=== PATIENT | female | born 1995 | race African-American/Black ===

== ENCOUNTER 2018-09-07 10:54 | Emergency (ER) | payer MEDICAID ==
[~2018-09-07] VITALS: Ht 172.7 cm; Wt 81.6 kg
[2018-09-07 11:12] VITALS: BP 112/73
[2018-09-07] MEDS ORDERED: Dicyclomine HCl 10mg/5ml oral soln ORAL ONE (11:30)
[2018-09-07] MEDS ORDERED: Mylanta II UD 30ml ORAL ONE (11:30)
[2018-09-07] MEDS ORDERED: Lidocaine 2% Visc 15ml soln ORAL ONE (11:30)
--- NOTE | 2018-09-08 14:18 | Emergency Room Report ---
History of Present Illness General Chief Complaint: Abdominal Pain Source: Patient Present Illness HPI Patient is a 23-year-old female presented after increased left-sided abdominal pain. Patient reports having the intermittent symptoms associated with nausea and vomiting. Patient reports having watery diarrhea. She reports having similar symptoms in the past. Patient states she had prior history of ovarian cyst. She denies any fever. She states she's had prior laparoscopy. The patient denies any hematemesis or bloody stools. She denies any weakness. Patient states that she's had recent imaging for similar complaints in the past.The patient states she is followed by her doctor at [facility] Allergies: Coded Allergies: No Known Allergies (Unverified , 09/07/18) Patient History Past Medical History: see triage record Last Menstrual Period: 08/19/18 Reviewed Nursing Documentation: PMH: Agreed; PSxH: Agreed Nursing Documentation-PMH Past Medical History: No Stated History Review of Systems All Other Systems: negative except mentioned in HPI Physical Exam Vital Signs Date Time Temp Pulse Resp B/P (MAP) Pulse Ox O2 Delivery O2 Flow Rate FiO2 09/07/18 10:57 98.2 63 18 112/73 99 Room Air Sp02 EP Interpretation: reviewed, normal General Appearance: normal inspection, well appearing, no apparent distress, alert, GCS 15 Head: atraumatic ENT: normal ENT inspection, hearing grossly normal, normal voice Neck: normal inspection, full range of motion, supple, no bony tend Respiratory: normal inspection, lungs clear, normal breath sounds, no respiratory distress, no retraction, no wheezing Cardiovascular #1: regular rate, rhythm, no edema Gastrointestinal: normal inspection, normal bowel sounds, soft, no guarding, no hernia, tenderness - left lower quadrant tendernes Genitourinary: no CVA tenderness Musculoskeletal: normal inspection, back normal, normal range of motion Neurologic: normal inspection, alert, oriented x3, responsive, clinical unit educator III-XII nml as tested, motor strength/tone normal, DTRs symmetric, speech normal Psychiatric: normal inspection, judgement/insight normal, mood/affect normal Skin: normal inspection, normal color, no rash Medical Decision Making Diagnostic Impression: Primary Impression: Abdominal pain Additional Impression: Ovarian cyst ER Course Patient presented for abdominal pain. Differential diagnoses included ischemic bowel, appendicitis, perforated viscus, abdominal aortic aneurysm, inferior myocardial infarction, viral gastroenteritis, ectopic , ovarian torsion. Because of complexity of patient's case laboratory testing and imaging studies were ordered.The patient was noted to have some tenderness in the left lower abdomen. The laboratory imaging studies were ordered however patient stated that she did not want to remain in the emergency department for workup. Patient was advised risk benefits and alternatives of leaving AGAINST MEDICAL ADVICE which included worsening condition, loss of current lifestyle. Patient left without any workup Last Vital Signs Date Time Temp Pulse Resp B/P (MAP) Pulse Ox O2 Delivery O2 Flow Rate FiO2 09/07/18 11:46 128/72 09/07/18 11:12 98.2 18 99 Room Air 09/07/18 11:05 63 Status: unchanged Disposition: AGAINST MEDICAL ADVICE Condition: Unknown Scripts No Active Prescriptions or Reported Meds Referrals: NON PHYSICIAN (PCP) Herber Thurman MD Sep 08, 2018 14:18
== END 2018-09-07 11:35 | disposition left against medical advice (07) ==
LOC: EMR 11:25
DX: R10.9 Unspecified abdominal pain (principal); R11.2 Nausea with vomiting, unspecified; N83.209 Unspecified ovarian cyst, unspecified side
CPT/HCPCS: 99282

== ENCOUNTER 2020-08-03 12:11 | Inpatient (IN) | payer MEDICAID, OTHER ==
[~2020-08-03] VITALS: Ht 172.7 cm; Wt 94.3 kg
[2020-08-03] MEDS ORDERED: NORCO 10-325 T1 EACH ORAL (12:18)
[2020-08-03 12:25] VITALS: BP 112/60
[2020-08-03] MEDS ORDERED: Morphine Sulfate 4mg/ml Inj (IV USE ONLY) IVP ONE (12:30)
--- NOTE | 2020-08-03 12:30 | NUR ---
ED Nurse Note: Patient walked in to ER, stated that had neck surgery on 08/01/2020 and came to be admited for pain management. Patient presented with soft c-collar, with steady gait, AAO x4, all VSS at this time, skin is warm to touch. Per patient she does not have any difficulty with breathing, just unbearable pain.
--- NOTE | 2020-08-03 12:32 | Emergency Room Report ---
History of Present Illness General Chief Complaint: Neck Pain Source: Patient Present Illness HPI Patient is a 25-year-old female presents for increased neck pain. Pain is predominant to the right side of her neck. Had previous history of neck injury and had recent disc replacement surgery. Patient been sent home subsequently and started having worsening pain. Denies any other locations or current symptoms. Pain worsened with movement. Patient had been in a soft collar. Pain noted initially been controlled postoperatively had gradually worsened. Allergies: Coded Allergies: No Known Allergies (Unverified , 09/07/18) COVID-19 Screening Contact w/high risk pt: No Experienced COVID-19 symptoms?: No COVID-19 Testing performed ACCOUNT SERVICE ASSOCIATE: No Patient History Past Medical History: see triage record Now: No Reviewed Nursing Documentation: PMH: Agreed; PSxH: Agreed Nursing Documentation-PMH Past Medical History: No History, Except For Hx Neurological Problems: Yes - neck surgery, hysterectomy Review of Systems All Other Systems: negative except mentioned in HPI Physical Exam Vital Signs Date Time Temp Pulse Resp B/P (MAP) Pulse Ox O2 Delivery O2 Flow Rate FiO2 08/03/20 12:14 97.9 65 18 112/60 (77) 99 Room Air Sp02 EP Interpretation: reviewed, normal General Appearance: normal inspection, well appearing, no apparent distress, alert, GCS 15, non-toxic Head: atraumatic ENT: normal ENT inspection, hearing grossly normal, normal voice Neck: normal inspection, full range of motion, supple, no bony tend Respiratory: normal inspection, lungs clear, normal breath sounds, no respiratory distress, no retraction, no wheezing Cardiovascular #1: regular rate, rhythm, no edema Gastrointestinal: normal inspection, normal bowel sounds, non tender, soft, no guarding, no hernia Genitourinary: no CVA tenderness Musculoskeletal: normal inspection, back normal, normal range of motion Neurologic: alert, responsive, speech normal, normal inspection Psychiatric: normal inspection, judgement/insight normal, mood/affect normal Medical Decision Making Diagnostic Impression: Primary Impression: Post-operative pain ER Course Patient presented for right-sided neck pain. Differential diagnosis include was not limited to hematoma, postoperative pain, radiculopathy among others. Because of complexity of patient's case laboratory tests and imaging studies were ordered. Patient was noted to have recent surgery does not appear to have any evidence of expanding hematoma at this time. Patient appears to have postoperative pain to the area of previous incision. Patient was discussed with Dr. Billy Lino and patient will be admitted to the hospital for further management and pain control. Labs Test 08/03/20 12:40 White Blood Count 6.5 K/UL (4.8-10.8) Red Blood Count 3.90 M/UL (4.20-5.40) Hemoglobin 12.8 G/DL (12.0-16.0) Hematocrit 38.9 % (37.0-47.0) Mean Corpuscular Volume 100 FL (80-99) Mean Corpuscular Hemoglobin 32.7 PG (27.0-31.0) Mean Corpuscular Hemoglobin Concent 32.9 G/DL (32.0-36.0) Red Cell Distribution Width 12.7 % (11.6-14.8) Platelet Count 264 K/UL (150-450) Mean Platelet Volume 6.9 FL (6.5-10.1) Neutrophils (%) (Auto) 50.7 % (45.0-75.0) Lymphocytes (%) (Auto) 39.8 % (20.0-45.0) Monocytes (%) (Auto) 7.9 % (1.0-10.0) Eosinophils (%) (Auto) 0.5 % (0.0-3.0) Basophils (%) (Auto) 1.2 % (0.0-2.0) Prothrombin Time 10.7 SEC (9.30-11.50) Prothromb Time International Ratio 1.0 (0.9-1.1) Activated Partial Thromboplast Time 29 SEC (23-33) Urine Color Yellow Urine Appearance Clear Urine pH 6 (4.5-8.0) Urine Specific Eunice 1.015 (1.005-1.035) Urine Protein Negative (NEGATIVE) Urine Glucose (UA) Negative (NEGATIVE) Urine Ketones Negative (NEGATIVE) Urine Blood Negative (NEGATIVE) Urine Nitrite Negative (NEGATIVE) Urine Bilirubin Negative (NEGATIVE) Urine Urobilinogen Normal MG/DL (0.0-1.0) Urine Leukocyte Esterase 1+ (NEGATIVE) Urine RBC 0-2 /HPF (0 - 2) Urine WBC 0-2 /HPF (0 - 2) Urine Squamous Epithelial Cells Few /LPF (NONE/OCC) Urine Bacteria Few /HPF (NONE) Urine Mucus Few /LPF (NONE/OCC) Sodium Level 139 MMOL/L (136-145) Potassium Level 3.5 MMOL/L (3.5-5.1) Chloride Level 104 MMOL/L (98-107) Carbon Dioxide Level 28 MMOL/L (21-32) Anion Gap 7 mmol/L (5-15) Blood Urea Nitrogen 6 mg/dL (7-18) Creatinine 0.8 MG/DL (0.55-1.30) Estimat Glomerular Filtration Rate > 60 mL/min (>60) Glucose Level 83 MG/DL (74-106) Calcium Level 8.3 MG/DL (8.5-10.1) Total Bilirubin 0.6 MG/DL (0.2-1.0) Aspartate Amino Transf (AST/SGOT) 10 U/L (15-37) Alanine Aminotransferase (ALT/SGPT) 16 U/L (12-78) Alkaline Phosphatase 48 U/L (46-116) Total Protein 7.6 G/DL (6.4-8.2) Albumin 3.9 G/DL (3.4-5.0) Globulin 3.7 g/dL Albumin/Globulin Ratio 1.1 (1.0-2.7) Last Vital Signs Date Time Temp Pulse Resp B/P (MAP) Pulse Ox O2 Delivery O2 Flow Rate FiO2 08/03/20 12:14 97.9 65 18 112/60 (77) 99 Room Air Status: unchanged Disposition: ADMITTED INPATIENT Condition: Stable Herber Thurman MD Aug 03, 2020 12:32
--- NOTE | 2020-08-03 12:45 | NUR ---
ED Nurse Note: IV line was established on left AC 20ga, blood and urine collected sent to lab
[2020-08-03 13:08] LABS: BASOPHILS % (AUTO) 1.2 % (0.0-2.0); EOSINOPHILS % (AUTO) 0.5 % (0.0-3.0); HEMATOCRIT 38.9 % (37.0-47.0); HEMOGLOBIN 12.8 G/DL (12.0-16.0); LYMPHOCYTES % (AUTO) 39.8 % (20.0-45.0); MEAN CORPUSCULAR VOLUME 100 FL (80-99); MONOCYTES % (AUTO) 7.9 % (1.0-10.0); NEUTROPHILS % (AUTO) 50.7 % (45.0-75.0); PLATELET COUNT 264 K/UL (150-450); RED CELL DISTRIBUTION WIDTH 12.7 % (11.6-14.8); WHITE BLOOD COUNT 6.5 K/UL (4.8-10.8)
[2020-08-03 13:09] LABS: APPEARANCE,URINE CLEAR; BILIRUBIN, URINE NEGATIVE (NEGATIVE); GLUCOSE, URINE (UA) NEGATIVE (NEGATIVE); KETONES,URINE NEGATIVE (NEGATIVE); LEUKOCYTE ESTERASE ,URINE 1+ (NEGATIVE); NITRITE,URINE NEGATIVE (NEGATIVE); PH,URINE 6 (4.5-8.0); PROTEIN,URINE NEGATIVE (NEGATIVE); UROBILINOGEN,URINE NORMAL MG/DL (0.0-1.0)
[2020-08-03 13:13] LABS: COLOR,URINE YELLOW
[2020-08-03 13:21] LABS: ANION GAP 7 mmol/L (5-15); BLOOD UREA NITROGEN 6 mg/dL (7-18); CALCIUM 8.3 MG/DL (8.5-10.1); CARBON DIOXIDE 28 MMOL/L (21-32); CHLORIDE 104 MMOL/L (98-107); CREATININE 0.8 MG/DL (0.55-1.30); POTASSIUM 3.5 MMOL/L (3.5-5.1); SODIUM 139 MMOL/L (136-145)
[2020-08-03 13:26] LABS: ALANINE AMINOTRANSFERASE 16 U/L (12-78); ALBUMIN 3.9 G/DL (3.4-5.0); ASPARTATE AMINO TRANSFERASE 10 U/L (15-37); BILIRUBIN,TOTAL 0.6 MG/DL (0.2-1.0)
[2020-08-03 13:27] LABS: ALBUMIN/GLOBULIN RATIO 1.1 (1.0-2.7); ALKALINE PHOSPHATASE 48 U/L (46-116)
--- NOTE | 2020-08-03 13:45 | NUR ---
NURSE NOTES: received report from ER Nurse Leisa, will wait for pt arrival to the floor
--- NOTE | 2020-08-03 14:00 | NUR ---
NURSE NOTES: Pt arrived to the floor via gurney, awake a/o X4, breaths regular unlabored on RA, pt helped self transfer to hospital bed with stand by assist, skin intact with multiple tattoos, pt c/o of pain 12/29, will follow up with medication orders . pt has a soft cervical collar, pt has OptiForm dressing on the Right side of neck , its the post op dressing per pt, pt stated md, told her not to remove dressing , belongings verified and signed for , pt has LT AC 20 Locked , bed in low locked position, side rails up X2, call light with in reach will call for admission orders
--- NOTE | 2020-08-03 14:15 | NUR ---
ED Nurse Note: Patient was admited to [facility] unit for pain managment. Patient was transfered to unit via gurney, with all belongings. Patient AAO c4, VSS at this time, skin is intact warm to touch.
[2020-08-03] MEDS ORDERED: Morphine Sulfate 4mg/ml Inj (IV USE ONLY) IVP PRN (15:30)
[2020-08-03 16:00] VITALS: BP 128/77
--- NOTE | 2020-08-03 19:32 | NUR ---
NURSE NOTES: Patient in bed, awake, alert and verbally responsive. Able to make needs known. Respiration is even and unlabored. Skin is warm and dry to touch. Abdomen is soft and non distended. Noted with right neck dry dressing, no s/s of infection noted, cervical collar noted, ice pack noted. Pain level 10/10 will given PRN pain medication as ordered. Iv site noted, intact. Bed in low and locked position. Provided safe environment. Phone at bedside. call light is at bedside. Will continue plan of care.
--- NOTE | 2020-08-03 19:50 | NUR ---
NURSE HAND-OFF: Important Events on Shift: new admit , Cervical spine xray pending Patient Status: stable Diet: soft Pending Orders: Pending Results/Labs: Pending MD notification: Latest Vital Signs: Temperature 98.2 , Pulse 76 , B/P 128 /77 , Respiratory Rate 18 , O2 SAT 98 , Room Air, O2 Flow Rate . Vital Sign Comment: Latest Gilliam Fall Score: 20 Fall Risk: Low Risk Safety Measures: Call light Within Reach, Bed Alarm Zone 2, Side Rails Side Rails x2, Bed position Low and Locked. Fall Precautions: Yellow Socks Patient Fall Education Report given to Ezra BEYER .
[2020-08-03 20:00] VITALS: BP 114/55
--- NOTE | 2020-08-03 21:18 | Diagnostic Imaging Report ---
EXAM: XR Cervical Spine, 3 Views CLINICAL HISTORY: POST-OP TECHNIQUE: Frontal , open-mouth odontoid and lateral views of the cervical spine. COMPARISON: No relevant prior studies available. FINDINGS: Vertebrae: No subluxation or acute fracture. Spaces around the dens are within normal limits. Disc spaces: Artificial disc replacement at C4-5. Soft tissues: Suspect mild prevertebral soft tissue swelling centered in the region of disc replacement . No soft tissue gas. IMPRESSION: Artificial disc replacement at C4-5. Suspect mild prevertebral soft tissue swelling. No soft tissue gas.
--- NOTE | 2020-08-03 21:30 | NUR ---
NURSE NOTES: Dr. Lino, saw patient, cervical spine xray read by . No new orders at the moment.
--- NOTE | 2020-08-03 23:29 | History and Physical Report ---
DATE OF ADMISSION: 08/03/2020 HISTORY OF PRESENT ILLNESS: Patient was admitted to hospital after having spine surgery. She is an unfortunate female who is status post anterior cervical spine surgery. She was seen and evaluated and preoperative history and physical was done on the patient. I saw the patient initially on 07/26/[address] Lorna Trinidad. This is a 25-year-old female who was seen for preoperative evaluation. She has had a previous history of COVID in April. Had no COVID symptoms. 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 Previously has had vaginal hysterectomy and microdiskectomy. MEDICATIONS: Prior to hospitalization, [facility] p[facility] ALLERGIES: Compazine. Patient was status post anterior cervical spine surgery. Subsequently had a lot of pain and admitted for further evaluation. Seen in the ER, admitted. Patient was initially given morphine and morphine did work well and subsequently switched to Dilaudid. SOCIAL HISTORY: She does not smoke. States she does not abuse alcohol or drugs. She is single. PHYSICAL EXAMINATION: VITAL SIGNS: Blood pressure 114/55, pulse 75, respirations 18, afebrile, saturating normal. GENERAL: Well-developed well-nourished female. She has extensions on her hair and they are heavy. SKIN: The wound has a dressing that is dry and intact. There is no purulent discharge on it. HEART: S1, S2. LUNGS: Clear. ABDOMEN: Soft. EXTREMITIES: No clubbing or cyanosis. IMPRESSION: A 25-year-old female, status post cervical spine fusion. Has postoperative pain. Failed outpatient treatment and admitted for further evaluation. Patient will be admitted. X-ray of cervical spine will be ordered to make sure that the hardware is not pressing on the nerve. Pain control with Dilaudid for severe pain, Percocet for moderate pain, Tylenol for mild pain. Patient will be placed on Colace 100 mg twice a day to make sure she does not get constipated from the above. SCD will be put on the patient. We will monitor patient closely. We will discuss the case with surgery. Billy Lino M.D. DR: /PIO JOB#: [id number] CC:
[2020-08-04] VITALS (7 sets, daily range): BP systolic 104–131; BP diastolic 56–64
--- NOTE | 2020-08-04 04:56 | NUR ---
NURSE NOTES: Patient complained of pain 10/10, given PRn pain medication as ordered. Call light is at bedside. Will continue plan of care.
--- NOTE | 2020-08-04 07:28 | NUR ---
NURSE HAND-OFF: Important Events on Shift:Nausea during report Patient Status: Diet: Pending Orders: Pending Results/Labs: Pending MD notification: Latest Vital Signs: Temperature 97.9 , Pulse 65 , B/P 108 /60 , Respiratory Rate 18 , O2 SAT 98 , Room Air, O2 Flow Rate . Vital Sign Comment: Latest Gilliam Fall Score: 20 Fall Risk: Low Risk Safety Measures: Call light Within Reach, Bed Alarm Zone 2, Side Rails Side Rails x2, Bed position Low and Locked. Fall Precautions: Yellow Socks Patient Fall Education Report given to .
--- NOTE | 2020-08-04 07:43 | NUR ---
NURSE NOTES: Received report from KAYLEEN Munguia. Rounding done with outgoing nurse. Pt c/o nausea d/t neck pain. Called Dr. Lino's office and no answering. Will give pain meds when it is due. Bed in lowest position, call light within reach. Will continue to monitor.
--- NOTE | 2020-08-04 09:26 | NUR ---
NURSE NOTES: Pt c/o nausea. Dr. Lino ordered zofran 4mg q4 IVP for prn. Noted and carried out.
--- NOTE | 2020-08-04 15:37 | NUR ---
PT Note Attempted to see patient for eval/tx but patient's with multiple complaints; requests to defer PT. RN was notified.
--- NOTE | 2020-08-04 18:47 | NUR ---
NURSE HAND-OFF: Important Events on Shift: Pain meds x3 Patient Status: stable Diet: soft diet Pending Orders: - Pending Results/Labs:- Pending MD notification:- Latest Vital Signs: Temperature 97.8 , Pulse 73 , B/P 116 /64 , Respiratory Rate 18 , O2 SAT 99 , Room Air, O2 Flow Rate . Vital Sign Comment: stable Latest Gilliam Fall Score: 20 Fall Risk: Low Risk Safety Measures: Call light Within Reach, Bed Alarm Zone 2, Side Rails Side Rails x2, Bed position Low and Locked. Fall Precautions: Yellow Socks Patient Fall Education Report given to KAYLEEN Samuel.
--- NOTE | 2020-08-04 19:31 | NUR ---
NURSE NOTES: Received report from KAYLEEN Wetzel. Pt is alert and oriented x4, on room air, sitting up in bed. Pt is status post anterior cervical spinal surgery performed outpatient on 08-02. Neck pain presently is at a level of 7 out of 10. Cervical collar in place. Will give pain meds at 2030 when she is next able to receive it per pt request. Bed is in lowest position, locked, call light within reach. Will continue to monitor pt and pain level. All personal belongings are within reach. Informed pt to call for assistance to use restroom as SCD's are on at this time. Pt verbalized understanding.
--- NOTE | 2020-08-05 00:45 | History and Physical Report ---
DATE OF ADMISSION: 08/03/2020 The patient is located in room 303. The patient was admitted to the hospital because of inadequate pain control postoperatively. This unfortunate female underwent anterior cervical diskectomy and disc arthroplasty. The patient was having a lot of pain. Today she says her pain is 8/10. This is of nature now. This exam was done on remote. A phone conversation was done on this patient. I saw the patient in the hospital yesterday and did her history and physical. The patient was seen and evaluated in my office a week ago for preoperative evaluation. She is an unfortunate female who is status post cervical spine surgery, has significant pain. She did have hairdo that added significant amount of weight to her hair. I asked her if it is possible to remove the extensions. Nonetheless, she says her pain is better than yesterday, but still 8/10. An x-ray was done on the patient, and the hardware appears to be intact. There is no fracture. Vital signs are stable. When I saw her yesterday, her wound was dry. THE FOLLOWING WILL BE DONE: Pain control. DVT prophylaxis. I have asked her to try to take pills rather than injections for her pain as they want to reduce her pain medication and try to get her out of the hospital as soon as possible when her pain subsides and controlled with regime of medication. The patient is agreeable to the above. Billy Lino M.D. : VIOLETA JOB#: [id number] CC:
[2020-08-05 04:00] VITALS: BP 114/62
--- NOTE | 2020-08-05 07:33 | NUR ---
NURSE HAND-OFF: Important Events on Shift: Pain meds x3 dilaudid q 3 hours, recent pain 06/30, reassessed and is 01/28 currently Patient Status: stable Diet: soft diet Pending Orders: - Pending Results/Labs:- Pending MD notification:- Latest Vital Signs: Temperature 97.8 , Pulse 73 , B/P 116 /64 , Respiratory Rate 18 , O2 SAT 99 , Room Air, O2 Flow Rate . Vital Sign Comment: stable Latest Gilliam Fall Score: 20 Fall Risk: Low Risk Safety Measures: Call light Within Reach, Bed Alarm Zone 2, Side Rails Side Rails x2, Bed position Low and Locked. Fall Precautions: Yellow Socks Patient Fall Education Report given to Damari BEYER
--- NOTE | 2020-08-05 07:56 | NUR ---
NURSE NOTES: Received report from KAYLEEN Samuel. Pt awake, alert and oriented x4, on room air, sitting up in bed. No respiratory distress note. c/o neck pain 6 out of 10. Cervical collar in place. IV intact and patent. Educated pt to use call light for assistance. Pt verbalized understanding. Bed is in lowest position, locked, call light and needs within reach. Will continue to monitor.
[2020-08-05 08:00] VITALS: BP 111/60
--- NOTE | 2020-08-05 10:22 | NUR ---
PT Note PT lavern completed, treatment initiated. Patient c/o pain on the right anterolateral surgical incisions, limiting her bed mobility. Patient also has unsteady gait. Patient needs physical therapy to instruct on HEP's and proper body mechanics to improve her functional mobility and gait. Addendum: 08/05/20 at 1023 by MERCEDES WELLS PT Amended: Links added.
[2020-08-05 12:00] VITALS: BP 116/67
--- NOTE | 2020-08-05 14:48 | NUR ---
CASE MANAGEMENT:INITIAL REVIEW 25 YR OLD FEMALE FROM HOME CC;NECK PAIN SI;POSTOPERATIVE PAIN 97.9 76 18 128/77 97% ON RA UA+ LEUKOCYTE ESTERASE, MUCUS CERVICAL SPINE XRAY ~ Artificial disc replacement at C4-5. Suspect mild prevertebral soft tissue swelling. No soft tissue gas. IS;MORPHINE IV ZOFRAN IV ADMITTED TO MED SURG MED SURG STATUS DCP;FROM HOME
[2020-08-05 16:00] VITALS: BP 126/73
[2020-08-05] MEDS ORDERED: HYDROmorphone 1mg/ml Carpuject IVP PRN (17:00)
--- NOTE | 2020-08-05 19:28 | NUR ---
NURSE HAND-OFF: Important Events on Shift:[Pain management] Patient Status: [stable] Diet: [soft] Pending Orders: [] Pending Results/Labs:[] Pending MD notification:[] Latest Vital Signs: Temperature 97.4 , Pulse 69 , B/P 126 /73 , Respiratory Rate 18 , O2 SAT 98 , Room Air, O2 Flow Rate . Vital Sign Comment: [stable] Latest Gilliam Fall Score: 20 Fall Risk: Low Risk Safety Measures: Call light Within Reach, Bed Alarm Zone 2, Side Rails Side Rails x2, Bed position Low and Locked. Fall Precautions: Yellow Socks Patient Fall Education Report given to [KAYLEEN Mahajan].
[2020-08-05 19:36] VITALS: BP 102/53
--- NOTE | 2020-08-05 19:41 | NUR ---
nurse's noted: received patient awake, alert and oriented; on high-sanchez's, using her cellphone; admits to a 10/10 pain on the surgical site on right lateral side of her neck; dressing is CDI; was somewhat upset when pain management was discussed with her; made her known about a pain management consult with Dr. Jose was arranged by her PMD. otherwise in no apparent distress;VSS; afebrile. will continue to monitor.
[2020-08-06] VITALS (7 sets, daily range): BP systolic 112–126; BP diastolic 59–69
--- NOTE | 2020-08-06 06:28 | NUR ---
NURSE HAND-OFF: Important Events on Shift: still complaining of severe pain on her surgical site located at the right lateral side of her neck. refused offer of PO narcotic. complained to the monorail charger operator of dysuria but none received by this RN. now c/o of heartburn, offered milk and cherios (per her request); will reassess; assisted to the bathroom at all times; no falls. Patient Status: stable at this time Diet: see order Pending Orders: AML Pending Results/Labs:yes Pending MD notification:none Latest Vital Signs: Temperature 98.3 , Pulse 75 , B/P 117 /60 , Respiratory Rate 19 , O2 SAT 100 , Room Air, O2 Flow Rate . Vital Sign Comment: stable;afebrile; see chart Latest Gilliam Fall Score: 20 Fall Risk: Low Risk Safety Measures: Call light Within Reach, Bed Alarm Zone 2, Side Rails Side Rails x2, Bed position Low and Locked. Fall Precautions: Yellow Socks Patient Fall Education Report will be given to malcom escalera.
[2020-08-06 10:39] LABS: APPEARANCE,URINE CLEAR; BILIRUBIN, URINE NEGATIVE (NEGATIVE); COLOR,URINE PALE YELLOW; GLUCOSE, URINE (UA) NEGATIVE (NEGATIVE); KETONES,URINE NEGATIVE (NEGATIVE); LEUKOCYTE ESTERASE ,URINE NEGATIVE (NEGATIVE); NITRITE,URINE NEGATIVE (NEGATIVE); PH,URINE 7 (4.5-8.0); PROTEIN,URINE NEGATIVE (NEGATIVE); UROBILINOGEN,URINE NORMAL MG/DL (0.0-1.0)
[2020-08-06] MEDS ORDERED: Chloraseptic Spray 20mL Bottle ORAL PRN (12:26)
[2020-08-06] MEDS ORDERED: LORazepam 1mg tab ORAL SCH (12:30)
--- NOTE | 2020-08-06 13:33 | NUR ---
CASE MANAGEMENT:REVIEW SI;POST PROCEDURAL PAIN 98.3 80 19 120/64 98% ON RA NO LABS AVAILABLE IS;ATIVAN PO ONCE PROTONIX PO QD DILAUDID IV Q4 PRN MED SURG STATUS DCP;FROM HOME
[2020-08-06] MEDS ORDERED: Milk of Magnesia 30ml Ud ORAL PRN (14:00)
[2020-08-06] MEDS ORDERED: Bethanechol 25mg Tab ORAL SCH (14:00)
[2020-08-06] MEDS ORDERED: Milk of Magnesia 30ml Ud ORAL SCH (14:03)
[2020-08-06] MEDS ORDERED: HYDROcodone/Acetamin 10/325 tab ORAL SCH (14:03)
[2020-08-06] MEDS: Sennosides 8.6mg tab ORAL SCH (17:01)
[2020-08-06] MEDS: Docusate 100mg cap ORAL SCH (17:01)
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
--- NOTE | 2020-08-06 19:18 | NUR ---
NURSE HAND-OFF: Important Events on Shift: Patient Status: full code/ stable Diet: Soft diet Pending Orders: [] Pending Results/Labs: AM labs Pending MD notification:[] Latest Vital Signs: Temperature 98.1 , Pulse 77 , B/P 126 /69 , Respiratory Rate 19 , O2 SAT 99 , Room Air, O2 Flow Rate . Vital Sign Comment: stable Latest Gilliam Fall Score: 20 Fall Risk: Low Risk Safety Measures: Call light Within Reach, Bed Alarm Zone 2, Side Rails Side Rails x2, Bed position Low and Locked. Fall Precautions: ambulate with steady gait Yellow Socks Patient Fall Education Report given to Renita BEYER, pt in stable condition. - during my shift pt is getting pain medications (Dilaudid IVP around the clock) - given stool softeners
--- NOTE | 2020-08-06 19:30 | NUR ---
NURSE NOTES: Received report & pt from KAYLEEN Haque. Pt in bed, a&ox4, in room air. No s/s of acute distress, c/o 9/10 pain at this time. Will give PRN pain med when due. Neck drsg C/D/I. IV site intact & S/L'd. Plan of care discussed.
--- NOTE | 2020-08-06 21:00 | NUR ---
NURSE NOTES: Pt requested dressing to be changed. Dressing changed, no bleeding noted. Steristrips intact.
--- NOTE | 2020-08-06 21:45 | History and Physical Report ---
DATE OF ADMISSION: 08/03/2020 Current location, [facility], room 303. HISTORY OF PRESENT ILLNESS: This is an unfortunate female who is status post anterior cervical diskectomy and disk arthroplasty. She came to the hospital with significant amount of pain. She was placed initially on morphine and subsequently switched to Dilaudid. I was unable to control her pain. I had discussed the case with the spine surgeon. X-ray was done, and anatomically she is doing well. She has been having severe pain. Prior to admission to the hospital, she was taking [place]. She was . Nonetheless, she is having pain. Yesterday when I saw her, she stated her pain level was 8; on admission, she said it was 8; and 2 days ago, she said it was 8, and subsequently Pain Management was consulted and Pain Management saw the patient. Today she said she is slightly better. She is still taking pain medication around the clock IV and she has been pain management. She is constipated. Medication regimen was given to the patient to make sure that she has bowel movement. Due to the pandemic, I am not coming to the hospital today and this was a telehealth evaluation. Vital signs that were obtained on the patient were reviewed. Case was discussed with the patient. Called and talked to the nurse as well for the patient. We will monitor the patient closely. I have discussed the case with Dr. Jose. We will monitor. Billy Lino M.D. DR: RAQUEL JOB#: [id number] CC:
--- NOTE | 2020-08-07 01:00 | NUR ---
NURSE NOTES: Pt asleep. Breathing unlabored. In no acute distress.
[2020-08-07 04:49] VITALS: BP 120/69
--- NOTE | 2020-08-07 06:31 | NUR ---
NURSE HAND-OFF: Important Events on Shift:pain management Patient Status: stable Diet: soft diet Pending Orders: none Pending Results/Labs:none Pending MD notification:none Latest Vital Signs: Temperature 98.6 , Pulse 67 , B/P 120 /69 , Respiratory Rate 16 , O2 SAT 93 , Room Air, O2 Flow Rate . Vital Sign Comment: none Latest Gilliam Fall Score: 20 Fall Risk: Low Risk Safety Measures: Call light Within Reach, Bed Alarm Zone 2, Side Rails Side Rails x2, Bed position Low and Locked. Fall Precautions: Yellow Socks Patient Fall Education Report given to . Addendum: 08/07/20 at 0725 by Renita Fleming RN Report given to KAYLEEN Quiros.
[2020-08-07] MEDS: HYDROcodone/Acetamin 10/325 tab ORAL PRN ×3 (07:00→17:10)
[2020-08-07 08:00] VITALS: BP 116/60
--- NOTE | 2020-08-07 08:00 | NUR ---
NURSE NOTES: Received report from KAYLEEN Maravilla. Rounding done with outgoing nurse. Pt a/o x 4, in bed. Pt c/o neck pain as 7/10 and pain med was given around 0700 by shift supervisor film processing nurse. Neck dressing is dry/intact. Pain med will be given as MD ordered. Discussed about plan of care. Lt AC IV is in placed. Bed in lowest position, call light within reach. Will continue to monitor.
[2020-08-07] MEDS: Docusate 100mg cap ORAL SCH ×2 (08:49→17:09)
[2020-08-07] MEDS: Sennosides 8.6mg tab ORAL SCH ×2 (08:49→17:10)
--- NOTE | 2020-08-07 09:45 | NUR ---
NURSE NOTES: Pt did not have BM for 5 days. Offered MOM but pt refused. Will continue to monitor.
[2020-08-07] MEDS ORDERED: HYDROcodone/Acetamin 10/325 tab ORAL SCH (11:18)
--- NOTE | 2020-08-07 11:29 | Pain Management Progress Note ---
Allergies: Coded Allergies: No Known Allergies (Unverified , 09/07/18) Vitals Vital Signs Date Time Temp Pulse Resp B/P (MAP) Pulse Ox O2 Delivery O2 Flow Rate FiO2 08/07/20 09:00 Room Air 08/07/20 08:00 97.8 79 20 116/60 (78) 96 08/07/20 04:49 98.6 67 16 120/69 (86) 93 Medications Current Medications Acetaminophen (Tylenol) 650 mg Q4H PRN ORAL Mild Pain (Pain Scale 1-3); Start 08/03/20 at 15:30; Stop 09/02/20 at 15:29 Acetaminophen/ Hydrocodone Bitart ([place] 10/325) 1 tab Q3H PRN ORAL Pain Scale (3-5) Last administered on 08/07/20at 11:13; Start 08/06/20 at 14:00; Stop 08/13/20 at 13:59 Al Hydroxide/Mg Hydroxide (Mylanta) 30 ml Q6H PRN ORAL gerd; Start 08/06/20 at 14:00; Stop 09/05/20 at 13:59 Bisacodyl (Dulcolax) 10 mg Q12H PRN RECTAL Constipation; Start 08/06/20 at 14:00; Stop 11/04/20 at 13:59 Diphenhydramine HCl (Benadryl) 25 mg Q6H PRN ORAL Itching; Start 08/06/20 at 14:00; Stop 09/05/20 at 13:59 Docusate Sodium (Colace) 100 mg TWICE A DAY ORAL Last administered on 0at 08:49; Start 08/06/20 at 18:00; Stop 09/05/20 at 17:59 Hydromorphone HCl (Dilaudid) 2 mg Q4H PRN IVP Severe Pain (Pain Scale 7-10) Last administered on 08/07/20at 09:58; Start 08/05/20 at 17:00; Stop 08/12/20 at 16:59 Magnesium Hydroxide (Mom) 30 ml DAILYPRN PRN ORAL Constipation; Start 08/06/20 at 14:00; Stop 09/05/20 at 13:59 Ondansetron HCl (Zofran) 4 mg Q4HR PRN IVP Nausea & Vomiting Last administered on 08/07/20at 11:17; Start 08/04/20 at 09:30; Stop 09/03/20 at 09:29 Pantoprazole (Protonix) 40 mg DAILY ORAL Last administered on 08/07/20at 08:49; Start 08/06/20 at 09:00; Stop 09/05/20 at 08:59 Phenol/Menthol (Chloraseptic) 1 spray Q2H PRN ORAL SORETHROAT Last administered on 08/06/20at 14:27; Start 08/06/20 at 12:26; Stop 11/04/20 at 12:25 Sennosides (Senokot) 8.6 mg BID ORAL Last administered on 08/07/20at 08:49; Start 08/06/20 at 18:00; Stop 09/05/20 at 17:59 Plan: I spent over sixty minutes in consultation today. Patient seen with nurse Foster. I discussed with outpt neurosurgeon Dr Trinidad yesterday. MAR medication list reviewed. Pt is still requesting the prn IV dilaudid often, nearly every 4-6 hours. Pt states she slept poorly, without soft collar, and presently is having intermittent shooting pains in her R shoulders. Circular Knife Cutter Machine strength normal bilaterally, and ambulating well. PO norco tolerated. I recommend to increase po norco usage, so pt can gain confidence that she can handle her pain at home on oral analgesics. Pt has tolerated one norco 10/325 tablet; pt suggested if she could trial two norco tablets at a time. Will start 2 tablet trial later this afternoon. Anti-pyretic dose of plain tylenol discontinued to avoid APAP overusage. Nurses are aware to wait at least 60 minutes between doses of norco and di laudid. Advancing diet tolerated without emesis. Swallowing, breathing, phonating within normal limits after neck surgery. Neur ologically intact grossly. Wound clean & dry. GI: +BS +flatus no BM; i strongly encouraged pt to accept dulcolax suppository if no BM today. failed MOM yesterday, and pt still complaining of 'delay in initiation' of urine flow. Trialed urecholine x 1 yesterday; no improvement. repeat u/a 08/06 was negative. pt says she has a history, & family history, of kidney ailments. Encourage advancing ambulation as tolerated. Patient has norco pain meds at home already, given from surgeon pre-operatively. Pt's cousin is arriving from [place] tomorrow, to assist pt at home with her 4-yo. [employer] discharge to home tomorrow. Billy Jose MD Aug 07, 2020 11:29
[2020-08-07 12:00] VITALS: BP 105/61
--- NOTE | 2020-08-07 12:01 | NUR ---
PT NOTE Attempted multiple times to see patient for gait training. Patient either unavailable or declined. Foster BEYER notified, will re-attempt later as schedule permits.
[2020-08-07 16:00] VITALS: BP 121/64
--- NOTE | 2020-08-07 17:30 | NUR ---
NURSE NOTES: Double check with NAOMI Negro regarding aspirin po bid. Sruthi ordered start first dose tomorrow am. Noted and carried out.
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
--- NOTE | 2020-08-07 18:47 | NUR ---
NURSE HAND-OFF: Important Events on Shift: Patient Status: stable Diet: soft Pending Orders: n/a Pending Results/Labs:n/a Pending MD notification:n/a Latest Vital Signs: Temperature 97.7 , Pulse 73 , B/P 121 /64 , Respiratory Rate 20 , O2 SAT 95 , Room Air, O2 Flow Rate . Vital Sign Comment: stable Latest Gilliam Fall Score: 20 Fall Risk: Low Risk Safety Measures: Call light Within Reach, Bed Alarm Zone 2, Side Rails Side Rails x2, Bed position Low and Locked. Fall Precautions: Yellow Socks Patient Fall Education Report given to KAYLEEN Alvarez.
[2020-08-07 20:00] VITALS: BP 118/69
--- NOTE | 2020-08-07 20:12 | NUR ---
NURSES NOTE: Received pt from KAYLEEN Hutchison. Rounds made. Pt in bed, A/OX4, states pain is tolerable at the moment stating pain is 3/10 anterior neck. No outward s/s of distress noted. Breathing pattern is even and unlabored on RA. Pt has cervical collar on. SCD on bilaterally. IV L AC [address], hep locked. All due medications will be administered. Bed at lowest level, call light within reach. Pt will continue to be monitored.
--- NOTE | 2020-08-07 23:00 | History and Physical Report ---
DATE OF ADMISSION: 08/03/2020 status post cervical artificial disc arthroplasty. She denies any fever or chills. She has been taking Dilaudid and [place]. working for her. She says her pain is more tolerable. She denies nausea, vomiting now, but she has been nauseated. On physical examination, her neck wound is dry and clean. Positive S1 and S2. Lungs are clear. IMPRESSION: 1. Status post disc arthroplasty. 2. Postoperative pain. PLAN: 1. Pain management. 2. Antiemetics p.r.n. 3. Discharge planning tomorrow. Billy Lino M.D. DR: VIOLETA JOB#: [id number] CC:
[2020-08-08 04:00] VITALS: BP 112/61
--- NOTE | 2020-08-08 07:04 | NUR ---
NURSE HAND-OFF: Important Events on Shift:[Pt made aware has to switch to PO meds for pain due to d/c] Patient Status: [stable] Diet: [Soft] Pending Orders: [Possible D/C] Pending Results/Labs:[NONE] Pending MD notification:[NONE] Latest Vital Signs: Temperature 98.2 , Pulse 77 , B/P 112 /61 , Respiratory Rate 17 , O2 SAT 97 , Room Air, O2 Flow Rate . Vital Sign Comment: [WNL] Latest Gliliam Fall Score: 20 Fall Risk: Low Risk Safety Measures: Call light Within Reach, Bed Alarm Zone 2, Side Rails Side Rails x2, Bed position Low and Locked. Fall Precautions: Yellow Socks Patient Fall Education Report given to [].
--- NOTE | 2020-08-08 07:40 | NUR ---
NURSE NOTES: WALKING ROUNDS DONE WITH NIGHT RN. PATIENT AWAKE IN BED. AOX4. QUESTIONS ANSWERED, NEEDS MET. DISCUSSED PLAN OF CARE FOR THE DAY. VERBALIZED UNDERSTANDING. C/O ANTERIOR NECK SURGICAL PAIN 04/30. DISCUSSED MED OPTIONS. ACKNOWLEDGED UNDERSTANDING. WILL MEDICATE ACCORDING TO PAIN SCALE OM NOV. BED IN LOW AND LOCKED POSITION. CALL LIGHT WITHIN REACH.
--- NOTE | 2020-08-08 07:47 | NUR ---
HAND OFF: Report given to KAYLEEN Sinha.
[2020-08-08 08:00] VITALS: BP 135/68
[2020-08-08] MEDS: Sennosides 8.6mg tab ORAL SCH (09:14)
[2020-08-08] MEDS: Docusate 100mg cap ORAL SCH (09:14)
[2020-08-08] MEDS: HYDROcodone/Acetamin 10/325 tab ORAL PRN (10:57)
[2020-08-08 11:50] VITALS: BP 119/58
--- NOTE | 2020-08-08 12:46 | Pain Management Progress Note ---
Allergies: Coded Allergies: No Known Allergies (Unverified , 09/07/18) Vitals Vital Signs Date Time Temp Pulse Resp B/P (MAP) Pulse Ox O2 Delivery O2 Flow Rate FiO2 08/08/20 11:50 98.2 64 20 119/58 (78) 97 08/08/20 11:27 98.2 08/08/20 09:00 Room Air 08/08/20 08:19 98.2 08/08/20 08:00 98.2 74 18 135/68 (90) 96 Medications Current Medications Acetaminophen/ Hydrocodone Bitart ([place] 10/325) 1 tab Q3H PRN ORAL Mild Pain (Pain Scale 1-3) Last administered on 08/07/20at 11:13; Start 08/06/20 at 14:00; Stop 08/13/20 at 13:59 Acetaminophen/ Hydrocodone Bitart ([place] 10/325) 2 tab Q4H PRN ORAL Moderate P ain (Pain Scale 4-6) Last administered on 08/08/20at 10:57; Start 08/07/20 at 11:30; Stop 08/14/20 at 11:29 Al Hydroxide/Mg Hydroxide (Mylanta) 30 ml Q6H PRN ORAL gerd; Start 08/06/20 at 14:00; Stop 09/05/20 at 13:59 Bisacodyl (Dulcolax) 10 mg Q12H PRN RECTAL Constipation; Start 08/06/20 at 14:00; Stop 11/04/20 at 13:59 Diphenhydramine HCl (Benadryl) 25 mg Q6H PRN ORAL Itching; Start 08/06/20 at 14:00; Stop 09/05/20 at 13:59 Docusate Sodium (Colace) 100 mg TWICE A DAY ORAL Last administered on 10/08/19at 09:14; Start 08/06/20 at 18:00; Stop 09/05/20 at 17:59 Hydromorphone HCl (Dilaudid) 2 mg Q4H PRN IVP Severe Pain (Pain Scale 7-10) Last administered on 08/08/20at 07:49; Start 08/05/20 at 17:00; Stop 08/12/20 at 16:59 Magnesium Hydroxide (Mom) 30 ml DAILYPRN PRN ORAL Constipation; Start 08/06/20 at 14:00; Stop 09/05/20 at 13:59 Ondansetron HCl (Zofran) 4 mg Q4HR PRN IVP Nausea & Vomiting Last administered on 08/08/20at 00:34; Start 08/04/20 at 09:30; Stop 09/03/20 at 09:29 Pantoprazole (Protonix) 40 mg DAILY ORAL Last administered on 08/08/20at 09:14; Start 08/06/20 at 09:00; Stop 09/05/20 at 08:59 Phenol/Menthol (Chloraseptic) 1 spray Q2H PRN ORAL SORETHROAT Last administered on 08/06/20at 14:27; Start 08/06/20 at 12:26; Stop 11/04/20 at 12:25 Sennosides (Senokot) 8.6 mg BID ORAL Last administered on 08/08/20at 09:14; Start 08/06/20 at 18:00; Stop 09/05/20 at 17:59 Plan: I spent over sixty minutes in consultation today. Patient seen with nurse Sinha. Pt rates pain 7 / 10; much improved from 10 /10 pain early in hospital; and pt states that pain is 'manageable.' MAR medication list reviewed. Vitals stable. Pt is requesting the prn IV dilaudid less often. Two tablets of norco working adequately. Nurses are aware to wait at least 60 minutes between doses of norco and dilaudid. Advanced diet tolerated. Itching/insomnia Neurologically intact grossly. Pt has f/u appt with surgeon on Thursday. Wound clean & dry. Nurse will change dressing to Tegaderm shortly. GI: +BS +flatus Large BM yesterday. Ambulating often & well. Patient has norco pain meds at home already, given from surgeon pre-operatively. Pt's cousin is no longer arriving from [place] tomorrow; but pt believes her brother will be able to assist pt at home with her 4-yo. Pt seems anxious about discharging from hospital, but doesn't wish to use anxiolytics such as BZDs. Discharge to home later today whenever ride is available. Billy Jose MD Aug 08, 2020 12:46
--- NOTE | 2020-08-08 15:30 | NUR ---
NURSE NOTES: DISCHARGE ORDER RECEIVED. PATIENT AWARE. SEEN BY DR. LARKIN THIS AM. DISCUSSED AND REVIEWED PAIN MEDS AND REGIMEN. PATIENT IN AGREEMENT TO GO HOME TODAY WITH CURRENT PAIN MEDS GIVEN BY SURGEON. EXPLAINED DC INSTRUCTIONS WITH PATIENT. ACKNOWLEDGED UNDERSTANDING. WILL F/U WITH SURGEON DISCUSSED WITH PATIENT.ALL BELONGINGS ACCOUNTED FOR. TRANSPORTED VIA TO LOBBY BY [employer] HELPER.
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
== END 2020-08-08 15:30 | disposition home or self-care (01) | DRG 948 ==
LOC: EMR 13:03 → 3E 13:07 → EDBEDREQ 13:11
DX: G89.18 Other acute postprocedural pain (principal); R39.15 Urgency of urination; E66.01 Morbid (severe) obesity due to excess calories; Z88.8 Allergy status to other drugs, medicaments and biological substances; Z98.890 Other specified postprocedural states; E66.9 Obesity, unspecified; Z68.32 Body mass index [BMI] 32.0-32.9, adult; K59.03 Drug induced constipation; T40.2X5A Adverse effect of other opioids, initial encounter
CPT/HCPCS: 36415; 72040; 80053; 81001; 81003; 85025; 85610; 85730; 87086; 96374; 96375; 99285; J2405

== ENCOUNTER 2020-11-07 20:51 | Inpatient (IN) | payer MEDICAID, OTHER ==
[~2020-11-07] VITALS: Ht 175.3 cm; Wt 72.6 kg
[~2020-11-07 20:51] MED LIST: NORCO 10-325 T1 EACH ORAL
--- NOTE | 2020-11-07 21:39 | Emergency Room Report ---
History of Present Illness General Chief Complaint: Pain Present Illness HPI 25-year-old female here with postoperative pain. Patient had a spinal stimulator placed earlier today at an outpatient testing center. She has been feeling severe postoperative pain and says that she was sent here by her doctor for admission and pain control. Patient says that she was given a prescription for pain medication to take at home but they are not working. Feels generalized pain but the pain is more severe in the midline thoracic spine when the stimulator has been placed and also in the left lower back where the battery pack has been placed. Says she feels generally weak but denies any focal numbness or weakness. 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 COVID-19 Screening: Negative COVID-19 COVID-19 Testing Source: na Patient History Last Menstrual Period: 2018 Now: No Nursing Documentation-PMH Hx Cardiac Problems: No Hx Cancer: No Hx Gastrointestinal Problems: No Hx Neurological Problems: No Review of Systems All Other Systems: negative except mentioned in HPI Physical Exam Vital Signs Date Time Temp Pulse Resp B/P (MAP) Pulse Ox O2 Delivery O2 Flow Rate FiO2 11/07/20 21:08 97.9 89 21 112/62 (79) 98 Room Air Sp02 EP Interpretation: reviewed, normal General Appearance: alert, non-toxic, other - Tearful, writhing in pain Head: normocephalic, atraumatic Eyes: bilateral eye normal inspection, bilateral eye PERRL ENT: hearing grossly normal, normal pharynx, no angioedema, normal voice Neck: full range of motion, supple/symm/no masses Respiratory: chest non-tender, lungs clear, normal breath sounds, speaking full sentences Cardiovascular #1: regular rate, rhythm, no edema Cardiovascular #2: 2+ carotid (R), 2+ carotid (L), 2+ radial (R), 2+ radial (L), 2+ dorsalis pedis (R), 2+ dorsalis pedis (L) Gastrointestinal: normal bowel sounds, non tender, soft, non-distended, no guarding, no rebound Rectal: deferred Genitourinary: normal inspection, no CVA tenderness Musculoskeletal: normal range of motion, other - Range of motion of the upper and lower extremities severely limited secondary to pain. Status post spinal stimulator in the thoracic spine. Battery pack left lower back Neurologic: alert, motor strength/tone normal, oriented x3, sensory intact, responsive, speech normal Psychiatric: judgement/insight normal, memory normal, mood/affect normal, no suicidal/homicidal ideation Lymphatic: no adenopathy Medical Decision Making Diagnostic Impression: Primary Impression: Post-operative pain ER Course 25-year-old female here with postoperative pain after a spinal stimulator was placed. I spoke with the patient's primary physician Dr. Lino who recommended CT. Currently awaiting results of CT. Patient to be admitted to [facility] for postoperative pain. Patient given 1 mg of Dilaudid in the emergency department. Signed out to oncoming physician. Last Vital Signs Date Time Temp Pulse Resp B/P (MAP) Pulse Ox O2 Delivery O2 Flow Rate FiO2 11/07/20 21:08 97.9 89 21 112/62 (79) 98 Room Air Connor Amin M.D. Nov 07, 2020 21:39
[2020-11-07] MEDS ORDERED: HYDROmorphone 1mg/ml Carpuject IVP ONE ×2 (21:45→23:00)
--- NOTE | 2020-11-07 22:11 | NUR ---
ED Nurse Note: Patient came in through ambulatory triage complaints of post op back pain patients blood specimens drawn and sent to lab
[2020-11-07 22:15] VITALS: BP 112/62
[2020-11-07 22:16] LABS: HEMATOCRIT 42.7 % (37.0-47.0); HEMOGLOBIN 13.8 G/DL (12.0-16.0); MEAN CORPUSCULAR VOLUME 96 FL (80-99); PLATELET COUNT 329 K/UL (150-450); RED BLOOD COUNT 4.45 M/UL (4.20-5.40); RED CELL DISTRIBUTION WIDTH 13.4 % (11.6-14.8); WHITE BLOOD COUNT 9.8 K/UL (4.8-10.8)
[2020-11-07 22:22] LABS: ANION GAP 9 mmol/L (5-15); BLOOD UREA NITROGEN 8 mg/dL (7-18); CALCIUM 8.8 MG/DL (8.5-10.1); CARBON DIOXIDE 25 MMOL/L (21-32); CHLORIDE 105 MMOL/L (98-107); CREATININE 0.9 MG/DL (0.55-1.30); SODIUM 139 MMOL/L (136-145)
[2020-11-07 22:27] LABS: ALANINE AMINOTRANSFERASE 17 U/L (12-78); ALBUMIN 3.9 G/DL (3.4-5.0); ALBUMIN/GLOBULIN RATIO 0.9 (1.0-2.7); ALKALINE PHOSPHATASE 67 U/L (46-116); ASPARTATE AMINO TRANSFERASE 18 U/L (15-37); BILIRUBIN,TOTAL 0.5 MG/DL (0.2-1.0)
--- NOTE | 2020-11-08 | NUR ---
HAND-OFF: Report given to Avad RN discussed pending orders, and medications administered .
--- NOTE | 2020-11-08 00:04 | NUR ---
TRANSFER TO FLOOR: Patient transferred to [address] [place] [address] ordered, per MD. Report given to Avad. Belongings sent with patient.
[2020-11-08 00:30] VITALS: BP 130/67
[2020-11-08] MEDS ORDERED: Milk of Magnesia 30ml Ud ORAL PRN (00:45)
[2020-11-08] MEDS ORDERED: oxyCODONE 5mg IR tab ORAL PRN (00:45)
[2020-11-08] MEDS: D5 1/2NS w/KCl 20mEq 1,000 ML IV SCH ×3 (01:30→21:39)
--- NOTE | 2020-11-08 01:30 | NUR ---
NURSE NOTES: Pt was admitted from ER at 0030, in stable condition. Vitals stable. Report received from [facility]. Pt reports of severe pain on surgical incision sites on her back. Surgical sites are covered with dressing, dry and intact. Pt was not able stay in position for CT scan in the ER. Dr. Lino was called for admitting orders. Doctor ordered CT T-spine and L-spine again for later in the morning without contrast. Pain medication will be given as ordered PRN. Pt is currently NPO D5 1/2 NS with 20 mEq KCL running at 100ml/hr. SCDS are on bilaterally. Fall precaution is in place. Pt will be monitored.
--- NOTE | 2020-11-08 03:19 | NUR ---
NURSE NOTES: Pt is calm in bed now.
[2020-11-08 04:00] VITALS: BP 102/57
[2020-11-08 06:32] LABS: HEMATOCRIT 36.5 % (37.0-47.0); LYMPHOCYTES % (AUTO) 13.9 % (20.0-45.0); MEAN CORPUSCULAR VOLUME 95 FL (80-99); MONOCYTES % (AUTO) 9.5 % (1.0-10.0); NEUTROPHILS % (AUTO) 75.5 % (45.0-75.0); PLATELET COUNT 291 K/UL (150-450); RED BLOOD COUNT 3.83 M/UL (4.20-5.40); RED CELL DISTRIBUTION WIDTH 13.2 % (11.6-14.8); WHITE BLOOD COUNT 11.8 K/UL (4.8-10.8)
--- NOTE | 2020-11-08 07:20 | NUR ---
HAND OFF NOTE: Report given to KAYLEEN Mayfield. Informed that pt is fall risk.
[2020-11-08 08:00] VITALS: BP 121/62
--- NOTE | 2020-11-08 08:00 | NUR ---
NURSE NOTES: Pt lying in bed w/bed in lowest position and call light within reach. Pt A&Ox4, VSS, and in no apparent distress. IV site intact/asymptomatic w/IVF infusing and surgical dressing C/D/I. Will continue to monitor.
[2020-11-08] MEDS: Docusate 100mg cap ORAL SCH ×2 (08:05→17:43)
--- NOTE | 2020-11-08 09:23 | NUR ---
NURSE NOTES: Spoke to regarding patient and new antibiotic order received. Order read back and carried out.
[2020-11-08] MEDS: ceFAZolin sod 1 GM in D5W 55 ML IVPB SCH ×2 (11:52→21:39)
[2020-11-08 12:00] VITALS: BP 140/62
[2020-11-08] MEDS ORDERED: APPLE CIDER VI500 MG PO (12:35)
[2020-11-08] MEDS ORDERED: ZINC30 M1 ORAL (12:35)
[2020-11-08] MEDS ORDERED: VITAMIN C500 M1 ORAL (12:35)
[2020-11-08] MEDS ORDERED: PRENA1 CHEW TA1.4 MG PO (12:35)
[2020-11-08] MEDS ORDERED: TURMERIC 500 M1 EAC1 PO (12:35)
--- NOTE | 2020-11-08 13:28 | Diagnostic Imaging Report ---
Indication: Back pain, history of recent spinal stimulator placement Technique: Spiral acquisitions obtained through the thoracic spine. No IV contrast utilized. Multiplanar reconstructions were generated. Total dose length product 299 mGycm. CTDIvol(s) 7 mGy. Dose reduction achieved using automated exposure control Comparison: none Findings: There is evidence of T10 laminotomy and resection of a portion of the spinous process. There is also evidence of a T11 laminotomy. Posterior to the laminotomy defect, there are combination of bubbly material as well as more discrete gas bubbles, possibly representing some packing material. Stimulator wires are seen coiled within the space occupied by this, anterior through the laminotomy defect and are within what is presumably the posterior epidural space posterior to T9 and T10. The wires create consider streak artifact which could obscure pathology. No definite worrisome fluid collection demonstrated. However, this is difficult to confidently exclude given the image degradation by the streak artifact. No evidence of unusual fluid collection in the surgical bed. Some gas bubbles are seen within the epidural space well cephalad to the insertion site, seen extending as far cephalad as T6. This does not appear to be resulting in any significant canal compromise. The bony alignment is normal. The vertebral body heights are preserved. The disc spaces are preserved. No acute fracture. No dislocation. No significant disc bulge or protrusion, spinal stenosis, or neural foraminal stenosis demonstrated. Size cuts demonstrate cervical spine hardware. The included lungs are clear except for some posterior dependent atelectatic changes. The soft tissues are otherwise unremarkable. Impression: Postsurgical changes, as described. No unusual features or evidence of complication related to such. The CT scanner at [facility] is accredited by the [employer] and the scans are performed using protocols designed to limit radiation exposure to as low as reasonably achievable to attain images of sufficient resolution adequate for diagnostic evaluation.
--- NOTE | 2020-11-08 13:35 | Diagnostic Imaging Report ---
Indications: Back pain Technique: Spiral acquisitions obtained through the lumbar spine. Multiplanar reconstructions were generated. No IV contrast utilized. Total dose length product 451 mGycm. CTDIvol(s) 11 mGy. Dose reduction achieved using automated exposure control Comparison: none Findings: There are postsurgical changes of the T9-T10 which are described in detail on separate thoracic spine report. The lumbar spine demonstrates normal alignment. No acute fracture. No dislocation. Vertebral body heights are preserved. The disc spaces are preserved. At L3-4, there is mild right intraforaminal disc protrusion. This does not appear to significantly compromise the neural foramen, however. At L4-5, there is minimal circumferential annular bulge. This does not significantly compromise the spinal canal or the neural foramina. At the remaining disc levels, no significant disc bulge or protrusion, spinal stenosis, or neural foraminal stenosis. The included soft tissues are unremarkable. Impression: Post surgical changes of the thoracic spine-see separate thoracic spine CT report No acute or significant lumbar spine abnormality The CT scanner at [facility] is accredited by the [employer] and the scans are performed using protocols designed to limit radiation exposure to as low as reasonably achievable to attain images of sufficient resolution adequate for diagnostic evaluation.
--- NOTE | 2020-11-08 15:43 | Consultation ---
History of Present Illness General Date patient seen: Nov 08, 2020 Chief Complaint: Pain Present Illness Allergies: Coded Allergies: No Known Allergies (Unverified , 09/07/18) Medication History Scheduled Ascorbic Acid* (Vitamin C*), 500 MG ORAL DAILY, (Reported) Cider Vinegar (Apple Cider Vinegar), 1,000 MG PO TID, (Reported) Comb No.42/Folic Acid (Prena1 Chew Tablet), 1.4 MG PO DAILY, (Reported) Turmeric/Turmeric Root Extract (Turmeric 500 mg Capsule), 1 EACH PO DAILY, (Reported) Zinc Gluconate-Zinc Picolinate (Zinc), 30 MG ORAL DAILY, (Reported) Scheduled PRN Hydrocodone Bit/Acetaminophen 10-325* ([place] 10-325*), 1 TAB ORAL Q4H PRN for For Pain, (Reported) Patient History Healthcare decision maker Resuscitation status Advanced Directive on File Physical Exam Last 24 Hour Vital Signs Date Time Temp Pulse Resp B/P (MAP) Pulse Ox O2 Delivery O2 Flow Rate FiO2 11/08/20 08:00 97.9 68 18 121/62 (81) 96 11/08/20 04:00 97.0 70 17 102/57 (72) 99 11/08/20 01:39 Room Air 11/08/20 00:30 97.8 75 20 130/67 (88) 99 11/07/20 23:44 97.9 11/07/20 22:39 97.9 11/07/20 22:15 97.9 78 21 112/62 98 Room Air 11/07/20 21:08 97.9 89 21 112/62 (79) 98 Room Air Intake and Output 11/07/20 11/08/20 19:00 07:00 Intake Total 424 ml Balance 424 ml Intake Oral 0 ml IV Total 400 ml Other 24 ml # Voids 1 # Bowel Movements 1 Laboratory Tests Test 11/07/20 22:00 11/08/20 05:35 White Blood Count 9.8 K/UL (4.8-10.8) 11.8 K/UL (4.8-10.8) H Red Blood Count 4.45 M/UL (4.20-5.40) 3.83 M/UL (4.20-5.40) L Hemoglobin 13.8 G/DL (12.0-16.0) 12.0 G/DL (12.0-16.0) Hematocrit 42.7 % (37.0-47.0) 36.5 % (37.0-47.0) L Mean Corpuscular Volume 96 FL (80-99) 95 FL (80-99) Mean Corpuscular Hemoglobin 30.9 PG (27.0-31.0) 31.3 PG (27.0-31.0) H Mean Corpuscular Hemoglobin Concent 32.2 G/DL (32.0-36.0) 32.8 G/DL (32.0-36.0) Red Cell Distribution Width 13.4 % (11.6-14.8) 13.2 % (11.6-14.8) Platelet Count 329 K/UL (150-450) 291 K/UL (150-450) Mean Platelet Volume 6.9 FL (6.5-10.1) 7.7 FL (6.5-10.1) Neutrophils (%) (Auto) % (45.0-75.0) 75.5 % (45.0-75.0) H Lymphocytes (%) (Auto) % (20.0-45.0) 13.9 % (20.0-45.0) L Monocytes (%) (Auto) % (1.0-10.0) 9.5 % (1.0-10.0) Eosinophils (%) (Auto) % (0.0-3.0) 0.0 % (0.0-3.0) Basophils (%) (Auto) % (0.0-2.0) 1.0 % (0.0-2.0) Differential Total Cells Counted 100 Neutrophils % (Manual) 95 % (45-75) H Lymphocytes % (Manual) 4 % (20-45) L Monocytes % (Manual) 1 % (1-10) Eosinophils % (Manual) 0 % (0-3) Basophils % (Manual) 0 % (0-2) Band Neutrophils 0 % (0-8) Platelet Estimate Adequate Platelet Morphology Normal Red Blood Cell Morphology Normal Sodium Level 139 MMOL/L (136-145) Potassium Level 4.0 MMOL/L (3.5-5.1) Chloride Level 105 MMOL/L (98-107) Carbon Dioxide Level 25 MMOL/L (21-32) Anion Gap 9 mmol/L (5-15) Blood Urea Nitrogen 8 mg/dL (7-18) Creatinine 0.9 MG/DL (0.55-1.30) Estimat Glomerular Filtration Rate > 60 mL/min (>60) Glucose Level 120 MG/DL (74-106) H Calcium Level 8.8 MG/DL (8.5-10.1) Total Bilirubin 0.5 MG/DL (0.2-1.0) Aspartate Amino Transf (AST/SGOT) 18 U/L (15-37) Alanine Aminotransferase (ALT/SGPT) 17 U/L (12-78) Alkaline Phosphatase 67 U/L (46-116) Total Protein 8.3 G/DL (6.4-8.2) H Albumin 3.9 G/DL (3.4-5.0) Globulin 4.4 g/dL Albumin/Globulin Ratio 0.9 (1.0-2.7) L Human Chorionic Gonadotropin, Quant < 1 mIU/mL (1-6) L Erythrocyte Sedimentation Rate 37 MM/HR (0-20) H C-Reactive Protein, Quantitative 1.3 mg/dL (0.00-0.90) H Height (Feet): 5 Height (Inches): 9.00 Weight (Pounds): 160 Medications Current Medications Medications (Trade) Dose Ordered Sig/Bella Route PRN Reason Start Time Stop Time Status Last Admin Dose Admin Acetaminophen (Tylenol) 650 mg Q4H PRN ORAL Mild Pain (Pain Scale 1-3) 11/08/20 00:45 12/08/20 00:44 Cefazolin Sodium 1 gm/Dextrose 55 ml @ 110 mls/hr Q8HR IVPB 11/08/20 11:00 11/15/20 10:59 11/08/20 11:52 Dextrose/ Electrolytes 1,000 ml @ 100 mls/hr Q10H IV 11/08/20 01:00 12/08/20 00:59 11/08/20 11:51 Docusate Sodium (Colace) 200 mg TWICE A DAY ORAL 11/08/20 09:00 12/08/20 08:59 11/08/20 08:05 Hydromorphone HCl (Dilaudid) 2 mg Q3H PRN IVP Severe Pain (Pain Scale 7-10) 11/08/20 00:45 11/15/20 00:44 11/08/20 15:13 Magnesium Hydroxide (Mom) 30 ml DAILYPRN PRN ORAL Constipation 11/08/20 00:45 12/08/20 00:44 Ondansetron HCl (Zofran) 4 mg Q4H PRN IVP Nausea & Vomiting 11/08/20 00:45 12/08/20 00:44 Oxycodone HCl (Roxicodone) 10 mg Q6H PRN ORAL Moderate Pain (Pain Scale 4-6) 11/08/20 00:45 11/15/20 00:44 11/08/20 09:56 Assessment/Plan Assessment/Plan: (1) Intractable back pain (2) S/p T10-T11 laminotomy and SCS placement seen dictated Félix Cunningham Nov 08, 2020 15:43
[2020-11-08] MEDS ORDERED: oxyCODONE 5mg IR tab ORAL SCH (15:45)
--- NOTE | 2020-11-08 15:49 | NUR ---
CASE MANAGEMENT:REVIEW 25 YR FEMALE WALKED INTO OUR ER CC; STATED SHE HAD SPINAL SURGERY TODAY AND IS IN PAIN PMH: HAD SPINAL STIMULATOR PLACED TODAY AT AN OUTPATIENT TESTING CENTER SI: POST OP PAIN 97.9 89 21 112/62 98% ON RA GLUCOSE+120 IS:IV DILAUDID X2 IV ZOFRAN X1 XRAY CHEST AND ABDOMEN CT CHEST /ABD : TO MED/SURG DCP: FROM HOME
[2020-11-08 16:00] VITALS: BP 127/65
[2020-11-08] MEDS: HYDROcodone/Acetamin 10/325 tab ORAL SCH ×2 (16:06→22:00)
[2020-11-08] MEDS: HYDROmorphone 1mg/ml Carpuject IVP PRN ×2 (17:43→21:40)
--- NOTE | 2020-11-08 19:56 | NUR ---
NURSE HAND-OFF: Important Events on Shift: Pt seen by pain management and placed on scheduled pain meds; pt eating and tolerating diet. Patient Status: Stable Diet: Regular Pending Orders: None Pending Results/Labs: None Pending MD notification: None Latest Vital Signs: Temperature 97.5 , Pulse 61 , B/P 127 /65 , Respiratory Rate 18 , O2 SAT 95 , Room Air, O2 Flow Rate . Vital Sign Comment: Stable Latest Gilliam Fall Score: 35 Fall Risk: Medium Risk Safety Measures: Call light Within Reach, Bed Alarm Zone 1, Side Rails Side Rails x2, Bed position Low and Locked. Fall Precautions: Yellow Socks Yellow Gown Door Sign Patient Fall Education Report given to KAYLEEN Bingham.
--- NOTE | 2020-11-08 20:36 | NUR ---
NURSE NOTES: Received patient awke, alert, verbal, resting in bed, comfortable.
[2020-11-08 20:39] VITALS: BP 120/65
[2020-11-09] VITALS: BP 124/72
[2020-11-09] MEDS: HYDROmorphone 1mg/ml Carpuject IVP PRN ×7 (00:03→17:37)
[2020-11-09 04:00] VITALS: BP 122/62
[2020-11-09] MEDS: HYDROcodone/Acetamin 10/325 tab ORAL SCH ×4 (04:00→22:05)
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
[2020-11-09] MEDS: ceFAZolin sod 1 GM in D5W 55 ML IVPB SCH ×3 (05:25→22:04)
[2020-11-09] MEDS: D5 1/2NS w/KCl 20mEq 1,000 ML IV SCH ×2 (05:25→16:31)
--- NOTE | 2020-11-09 06:10 | NUR ---
NURSE HAND-OFF: Important Events on Shift:[]Pain medication Patient Status: []Needy Diet: []Regular Pending Orders: [] Pending Results/Labs:[] Pending MD notification:[] Latest Vital Signs: Temperature 97.6 , Pulse 60 , B/P 122 /62 , Respiratory Rate 20 , O2 SAT 98 , Room Air, O2 Flow Rate . Vital Sign Comment: [] Latest Gilliam Fall Score: 35 Fall Risk: Medium Risk Safety Measures: Call light Within Reach, Bed Alarm Zone 1, Side Rails Side Rails x2, Bed position Low and Locked. Fall Precautions: Yellow Socks Yellow Gown Door Sign Patient Fall Education Report given to [].
[2020-11-09 07:04] LABS: BASOPHILS % (AUTO) 0.8 % (0.0-2.0); EOSINOPHILS % (AUTO) 0.3 % (0.0-3.0); HEMATOCRIT 31.9 % (37.0-47.0); HEMOGLOBIN 10.5 G/DL (12.0-16.0); LYMPHOCYTES % (AUTO) 27.3 % (20.0-45.0); MEAN CORPUSCULAR VOLUME 95 FL (80-99); MONOCYTES % (AUTO) 9.6 % (1.0-10.0); NEUTROPHILS % (AUTO) 62.1 % (45.0-75.0); PLATELET COUNT 225 K/UL (150-450); RED BLOOD COUNT 3.36 M/UL (4.20-5.40); RED CELL DISTRIBUTION WIDTH 13.3 % (11.6-14.8); WHITE BLOOD COUNT 7.4 K/UL (4.8-10.8)
--- NOTE | 2020-11-09 07:12 | NUR ---
NURSE NOTES: Hand-off report received from Cristobal Kline RN. Patient in stable condition, alert and oriented x4, breathing even and unlabored. Bed alarm on, bed in lowest and locked position, call light within reach, side rails upx2.
[2020-11-09 08:00] VITALS: BP_SYST 110; BP_SYST 121; BP_DIAS 65; BP_DIAS 73
--- NOTE | 2020-11-09 08:08 | General Progress Note ---
Subjective Date patient seen: Nov 09, 2020 Time patient seen: 07:00 - am Allergies: Coded Allergies: No Known Allergies (Unverified , 09/07/18) Subjective HISTORY OF PRESENT ILLNESS: Patient is a 25-year-old female who is being seen on med/surgical floor of [facility]. Patient is sitting in bed continues to c/o pain which is worse with movement. Has been tolerable on the Dilaudid 5 doses and [place] 1 dose. Was not given the [place] twice overnight. She also states that the Neurontin has been effective in reducing her pain. REVIEW OF SYSTEMS: Denies rash, fever, chills, sweating, dizziness, drowsiness, blurred vision, sore throat, or change in weight. No shortness of breath, chest pain, or palpitations. No nausea, vomiting, diarrhea, or blood in stool or urine. No dysuria. Objective Last 24 Hour Vital Signs Date Time Temp Pulse Resp B/P (MAP) Pulse Ox O2 Delivery O2 Flow Rate FiO2 11/09/20 05:55 97.6 11/09/20 04:00 98.7 60 20 122/62 (82) 98 11/09/20 03:30 97.6 11/09/20 00:33 97.6 11/09/20 00:00 97.9 60 18 124/72 (89) 99 11/08/20 22:09 97.6 11/08/20 21:00 Room Air 11/08/20 20:39 97.6 60 18 120/65 (83) 98 11/08/20 16:00 97.5 61 18 127/65 (85) 95 11/08/20 12:00 97.6 76 18 140/62 (88) 98 11/08/20 09:00 Room Air Intake and Output 11/08/20 11/09/20 19:00 07:00 Intake Total 500 ml 1060 ml Balance 500 ml 1060 ml IV Total 100 ml 1060 ml Other 400 ml # Voids 1 Laboratory Tests 11/09/20 06:05: White Blood Count 7.4, Red Blood Count 3.36L, Hemoglobin 10.5L, Hematocrit 31.9L , Mean Corpuscular Volume 95, Mean Corpuscular Hemoglobin 31.2H, Mean Corpuscular Hemoglobin Concent 32.9, Red Cell Distribution Width 13.3, Platelet Count 225, Mean Platelet Volume 7.2, Neutrophils (%) (Auto) 62.1, Lymphocytes (%) (Auto) 27.3, Monocytes (%) (Auto) 9.6, Eosinophils (%) (Auto) 0.3, Basophils (%) (Auto) 0.8 Height (Feet): 5 Height (Inches): 9.00 Weight (Pounds): 160 Objective PHYSICAL EXAMINATION: GENERAL: Alert, awake, and oriented. LUNGS: Decreased breath sounds bilaterally. HEART: S1 S2 Regular. ABDOMEN: Soft, nontender. EXTREMITIES: No clubbing. No edema. NEURO: No changes. Assessment/Plan Assessment/Plan: (1) Intractable back pain (2) S/p T10-T11 laminotomy and SCS placement Patient will be continued on [place], Dilaudid and Neurontin. D/w Dr. Zapata and he concurred. Félix Cunningham Nov 09, 2020 08:08
[2020-11-09] MEDS: Docusate 100mg cap ORAL SCH ×2 (08:10→17:36)
--- NOTE | 2020-11-09 08:15 | NUR ---
CASE MANAGEMENT:REVIEW 11/09/20 SI: POST OP PAIN S/P SPINAL STIMULATOR PLACEMENT 98.7 60 20 122/62 98% ON RA H/H-10.5/31.9 IS: IV ANCEF Q8HRS IVF@100/HR NEURONTIN PO TID IV DILAUDID Q2HR PRN SEVERE PAIN : MED/SURG STATUS DCP: FROM HOME PLAN: PAIN MANAGEMENT
--- NOTE | 2020-11-09 10:44 | History and Physical Report ---
DATE OF ADMISSION: 11/07/2020 REASON FOR ADMISSION: Pain control. HISTORY OF PRESENT ILLNESS: This is an unfortunate female who is admitted to the hospital after undergoing a procedure as outpatient. This unfortunate female has had a history of cervical spine surgery, history of lumbar radiculopathy and underwent stimulator trial that was apparently successful, subsequently went for spinal stimulator placement. This spinal stimulator is in the thoracic area. She is tender on palpation in the area. She had surgery yesterday. After leaving the postanesthesia care unit from the surgery center, the patient experienced severe pain. Subsequently, she was brought to the ER to be further evaluated. I reviewed the preoperative evaluation on the patient. The note from doctor said previously she had undergone surgery, which she had cervical spine surgery. States she was on no medication. States she is single and twice. I also reviewed and there was no urinary test obtained prior to surgery. PAST SURGICAL HISTORY: 1. Microdiskectomy. 2. Vaginal hysterectomy surgery for endometriosis. 3. Spinal cord stimulator placement after spinal cord stimulator trial. PHYSICAL EXAMINATION: VITAL SIGNS: Afebrile. HEENT: Normocephalic and atraumatic. HEART: S1 and S2. LUNGS: Clear. ABDOMEN: Soft. EXTREMITIES: SKIN: There is no redness gilda-incisional in the back. IMPRESSION: This unfortunate female was admitted to the hospital status post spinal cord stimulator placement. The patient moves all the 4 extremities. she has pain upon movement. status post spinal cord stimulator placement . Oxycodone will be given to the patient. The patient to get a CT scan of the thoracic and lumbar spine to evaluate that spinal cord stimulator placement and the leads, to make sure the leads are in the right place. There is no other issues of bleeding associated with surgery. Discussed the case with the spine surgeon. Pain control will be given to the patient. DVT prophylaxis with SCDs. We will monitor patient closely. Billy Lino M.D. DR: OANH JOB#: [id number] CC:
[2020-11-09 12:00] VITALS: BP_SYST 112; BP_SYST 150; BP_DIAS 79; BP_DIAS 95
--- NOTE | 2020-11-09 14:00 | NUR ---
NURSE NOTES: Called and left a voicemail with Dr. Cunningham concerning unrelieved pain. Awaiting response.
[2020-11-09 16:00] VITALS: BP 113/62
--- NOTE | 2020-11-09 16:00 | NUR ---
NURSE NOTES: Left a voicemail for Dr. Cunningham, awaiting response.
--- NOTE | 2020-11-09 18:00 | NUR ---
NURSE NOTES: Called Dr. Cunningham but no answer.
--- NOTE | 2020-11-09 19:00 | NUR ---
NURSE NOTES: Called Dr. Lion regarding unmanaged pain and provided the order to increase dilaudid from 1 to 2mg every 2 hours and stated he will come to see the patient in a few hours.
--- NOTE | 2020-11-09 19:50 | NUR ---
NURSE HAND-OFF: Important Events on Shift: called Dr. Cunningham for a change in pain management regimen but no answer, Dr. Lino states he will come by later to see the patient Patient Status: stable condition, breathing even and unlabored, alert and oriented x4 Diet: regular Pending Orders: [] Pending Results/Labs:[] Pending MD notification:[] Latest Vital Signs: Temperature 98.1 , Pulse 88 , B/P 113 /62 , Respiratory Rate 18 , O2 SAT 99 , Room Air, O2 Flow Rate . Vital Sign Comment: [] Latest Gilliam Fall Score: 35 Fall Risk: Medium Risk Safety Measures: Call light Within Reach, Bed Alarm Zone 2, Side Rails Side Rails x2, Bed position Low and Locked. Fall Precautions: Yellow Socks Yellow Gown Door Sign Patient Fall Education Report given to KAYLEEN Jain.
--- NOTE | 2020-11-09 19:53 | NUR ---
NURSE NOTES: Received patient awake, alert, verbal resting in bed.
[2020-11-09 20:13] VITALS: BP 111/56
[2020-11-10 00:34] VITALS: BP 109/55
[2020-11-10] MEDS: D5 1/2NS w/KCl 20mEq 1,000 ML IV SCH ×3 (02:14→23:00)
--- NOTE | 2020-11-10 02:44 | Progress Note ---
DATE: 11/07/2020 HISTORY OF PRESENT ILLNESS: The patient was admitted to the hospital. Subsequently, I evaluated in the morning. She has complained of having a lot of pain. Pain consult was obtained on the patient. The patient underwent CT scan of the lumbar as well as thoracic spine. CT scan obtained on the patient was reviewed. There are postoperative changes. There are no signs of infection. Hardware appears to be in the right place. Vital signs of the patient is stable, likely has an acute distress, moves all extremities, but she has pain. IMPRESSION: Postoperative pain. PLAN: I discussed the case with the neurosurgeon who operated on the patient. She will be on Ancef for 2 days. Pain consult was obtained as the patient is in lot of pain medication. The patient to be on continuous pulse ox. I do not see a continuous pulse ox on the patient and has been ordered to be on continuous pulse ox. I will talk to the nursing staff to make sure the patient is on continuous pulse ox because she is in high dose pain medication and wanted to make sure the patient does not desat. The patient has not had a bowel movement postoperatively. Need to make sure the patient has a bowel movement. DVT prophylaxis with sequential compression stocking. The patient had a spine procedure, unable to put her on Lovenox. Case was discussed with the patient at length. We will monitor the patient closely. Billy Lino M.D. DR: Aurelia JOB#: [id number] CC:
[2020-11-10] MEDS: HYDROcodone/Acetamin 10/325 tab ORAL SCH ×4 (03:58→22:00)
[2020-11-10 04:11] VITALS: BP 118/79
[2020-11-10] MEDS: ceFAZolin sod 1 GM in D5W 55 ML IVPB SCH ×3 (05:51→21:43)
--- NOTE | 2020-11-10 06:18 | NUR ---
NURSE HAND-OFF: Important Events on Shift:[]Needs assist to bathroom Patient Status: []pain medications Diet: []Regular Pending Orders: [] Pending Results/Labs:[] Pending MD notification:[] Latest Vital Signs: Temperature 97.9 , Pulse 94 , B/P 118 /79 , Respiratory Rate 18 , O2 SAT 96 , Room Air, O2 Flow Rate . Vital Sign Comment: [] Latest Gilliam Fall Score: 35 Fall Risk: Medium Risk Safety Measures: Call light Within Reach, Bed Alarm Zone 2, Side Rails Side Rails x2, Bed position Low and Locked. Fall Precautions: Yellow Socks Yellow Gown Door Sign Patient Fall Education Report given to [].
[2020-11-10 08:00] VITALS: BP 124/63
--- NOTE | 2020-11-10 08:33 | NUR ---
NURSE NOTES: Patient awake and alert and oriented,respirations unlabored.IV fluids infusing as ordered.Patient state having back pain,requesting pain medication,pain med given as ordered.Call light within reach.
[2020-11-10] MEDS: Docusate 100mg cap ORAL SCH ×2 (09:31→18:46)
[2020-11-10 12:00] VITALS: BP 115/55
[2020-11-10] MEDS ORDERED: Milk of Magnesia 30ml Ud ORAL PRN (14:00)
[2020-11-10 16:00] VITALS: BP 117/67
--- NOTE | 2020-11-10 18:56 | NUR ---
NURSE NOTES: Patient resting, talking on the phone.o2 sat as ordered.V fluids continue to unfused as ordered. Call light within reach
--- NOTE | 2020-11-10 19:35 | NUR ---
NURSE HAND-OFF: [place] RN Important Events on Shift:[continuos pulse ox] Patient Status: [stable] Diet: [ Regular] Pending Orders: [] Pending Results/Labs:[] Pending MD notification:[] Latest Vital Signs: Temperature 97.9 , Pulse 77 , B/P 117 /67 , Respiratory Rate 18 , O2 SAT 99 , Room Air, O2 Flow Rate . Vital Sign Comment: [] Latest Gilliam Fall Score: 35 Fall Risk: Medium Risk Safety Measures: Call light Within Reach, Bed Alarm Zone 2, Side Rails Side Rails x2, Bed position Low and Locked. Fall Precautions: ambulates gait steady. Yellow Socks Yellow Gown Door Sign Patient Fall Education Report given to [].
[2020-11-10 20:00] VITALS: BP 107/67
--- NOTE | 2020-11-10 20:30 | NUR ---
NURSE NOTES: Pt is in bed, calm. No acute distress noted. Vitals stable. Pt complains of pain back pain around the clock. Pain medication will be given as ordered PRN. Surgical incision sites are dry, clean and intact with gauze dressing. Pt is able to ambulate to the bathroom with some pain. Fall precautions in place. Pt will be monitored.
[2020-11-10] MEDS: Milk of Magnesia 30ml Ud ORAL PRN (21:43)
--- NOTE | 2020-11-10 22:00 | NUR ---
NURSE NOTES: MOM given for constipation as ordered PRN
[2020-11-11] VITALS: BP 103/61
--- NOTE | 2020-11-11 03:44 | History and Physical Report ---
DATE OF ADMISSION: 11/07/2020 HISTORY OF PRESENT ILLNESS: The patient is a female who was admitted for postoperative pain. a couple of bones for bone replacement and . She has been having a lot of pain. She is recently on Dilaudid 3 mg and Dilaudid has been decreased to 2 mg. Meanwhile, the patient has been consulted and . She also is trying to take [place] in order to reduce the Dilaudid. Due to COVID-19 pandemic, she evaluation with her. Vital signs have been stable. The patient has not had a bowel movement. The patient is on twice a day, which is milk of magnesia p.r.n. and I have encouraged the patient to take it. I encouraged the patient to drink a lot of fluid and reduce the number of pain medications, injections, and even pills as they can be constipated. She is aware of that. I had a discussion with her surgeon today. She has been on prophylactic antibiotic, Ancef for two days, 48 hours, and that will be stopped. We will manage her pain closely, try to reduce pain medication to make sure that she is able to take medication by mouth when she goes home. Billy Lino M.D. DR: VICTORIANO JOB#: [id number] CC:
[2020-11-11 04:00] VITALS: BP 105/61
--- NOTE | 2020-11-11 04:00 | NUR ---
NURSE NOTES: Pt complains of pain 8/10 on her back, Pain medication given as ordered. Pt is on continuos pulse oximetry.
[2020-11-11] MEDS: HYDROcodone/Acetamin 10/325 tab ORAL SCH ×4 (05:25→22:48)
--- NOTE | 2020-11-11 06:43 | NUR ---
NURSE NOTES: Pt has pulse oximeter by the bedside, however, pt likes take it off. Pt was educated and encouraged to keep the pulse oximetry on.
--- NOTE | 2020-11-11 07:30 | NUR ---
NURSE HAND-OFF: Important Events on Shift:[Pt asks for pain medication around the clock] Patient Status: [Stable] Diet: [Reg] Pending Orders: [] Pending Results/Labs:[] Pending MD notification:[] Latest Vital Signs: Temperature 97.8 , Pulse 79 , B/P 105 /61 , Respiratory Rate 16 , O2 SAT 99 , Room Air, O2 Flow Rate . Vital Sign Comment: [] Latest Gililam Fall Score: 35 Fall Risk: Medium Risk Safety Measures: Call light Within Reach, Bed Alarm Zone 2, Side Rails Side Rails x2, Bed position Low and Locked. Fall Precautions: Yellow Socks Yellow Gown Door Sign Patient Fall Education Report given to [KAYLEEN Larry].
[2020-11-11 08:00] VITALS: BP 116/82
--- NOTE | 2020-11-11 08:00 | NUR ---
NURSE NOTES: Received patient is in bed, no complaint of pain or discomfort at this time as she was recently medicated by NOC KAYLEEN He. Surgical incision sites are dry, clean and intact with gauze dressing. Pt is able to ambulate to the bathroom with some pain. RAC IV access G20, asked to be off IVF for now. Bed locked at the lowest position possible, call light within easy reach, side rails up x2. Fall precautions in place. Nurse will monitor constantly patient and follow up with the plan of care.
[2020-11-11] MEDS: D5 1/2NS w/KCl 20mEq 1,000 ML IV SCH ×2 (09:00→18:30)
[2020-11-11] MEDS: Milk of Magnesia 30ml Ud ORAL PRN (09:03)
[2020-11-11] MEDS: Docusate 100mg cap ORAL SCH ×2 (09:04→18:24)
--- NOTE | 2020-11-11 10:22 | General Progress Note ---
Subjective Date patient seen: Nov 11, 2020 Time patient seen: 09:30 - am Allergies: Coded Allergies: No Known Allergies (Unverified , 09/07/18) Subjective HISTORY OF PRESENT ILLNESS: Patient is a 25-year-old female who is being seen on med/surgical floor of [facility]. Patient walking with therapist. She was increased to 2mg Dilaudid IV Q2H PRN as per tax appraiser. Had requested 8 doses of Dilaudid and only one dose of the scheduled [place] was given in the last 24hrs. Patient was advised to take the [place] and use less of the Dilaudid. She seems to understand. Is c/o constipation. REVIEW OF SYSTEMS: Denies rash, fever, chills, sweating, dizziness, drowsiness, blurred vision, sore throat, or change in weight. No shortness of breath, chest pain, or palpitations. No nausea, vomiting, diarrhea, or blood in stool or urine. No dysuria. Objective Last 24 Hour Vital Signs Date Time Temp Pulse Resp B/P (MAP) Pulse Ox O2 Delivery O2 Flow Rate FiO2 11/11/20 04:00 97.8 79 16 105/61 (76) 99 11/11/20 00:00 97.8 76 16 103/61 (75) 100 11/10/20 21:00 Room Air 11/10/20 20:00 97.6 73 18 107/67 (80) 100 11/10/20 16:00 97.9 77 18 117/67 (84) 99 11/10/20 12:00 97.6 61 18 115/55 (75) 99 Intake and Output 11/10/20 11/11/20 19:00 07:00 Intake Total 2185 ml 360 ml Balance 2185 ml 360 ml Intake Oral 1080 ml IV Total 1105 ml Other 360 ml # Voids 4 2 Height (Feet): 5 Height (Inches): 9.00 Weight (Pounds): 160 Objective PHYSICAL EXAMINATION: GENERAL: Alert, awake, and oriented. LUNGS: Decreased breath sounds bilaterally. HEART: S1 S2 Regular. ABDOMEN: Soft, nontender. EXTREMITIES: No clubbing. No edema. NEURO: No changes. Assessment/Plan Assessment/Plan: (1) Intractable back pain (2) S/p T10-T11 laminotomy and SCS placement Patient will be continued on [place], Dilaudid and Neurontin. we will start Lactulose 30gm Q2H matilde x3 or until BM then discontinue. D/w Dr. Zapata and he concurred. Félix Cunningham Nov 11, 2020 10:22
[2020-11-11] MEDS: Lactulose 20gm/30ml UDC ORAL SCH ×3 (11:14→15:00)
[2020-11-11 11:58] VITALS: BP 114/57
--- NOTE | 2020-11-11 15:52 | NUR ---
PT Note PT lavern completed, treatment initiated. Patient c/o pain on her thoracolumbar area, increased during bed mobility/transfers and with gait. Patient needs PT to increase her muscle strength and improve her safety in mobility and gait. Addendum: 11/11/20 at 1554 by MERCEDES WELLS PT Amended: Links added.
[2020-11-11 16:00] VITALS: BP 120/64
--- NOTE | 2020-11-11 19:24 | NUR ---
NURSE HAND-OFF: Important Events on Shift:[] Patient Status: [stable] Diet: [reg] Pending Orders: [] Pending Results/Labs:[] Pending MD notification:[] Latest Vital Signs: Temperature 97.7 , Pulse 80 , B/P 120 /64 , Respiratory Rate 18 , O2 SAT 96 , Room Air, O2 Flow Rate . Vital Sign Comment: [] Latest Gilliam Fall Score: 35 Fall Risk: Medium Risk Safety Measures: Call light Within Reach, Bed Alarm Zone 2, Side Rails Side Rails x2, Bed position Low and Locked. Fall Precautions: Yellow Socks Yellow Gown Door Sign Patient Fall Education Report given to [KAYLEEN Aldana].
[2020-11-11 20:00] VITALS: BP 121/77
--- NOTE | 2020-11-11 20:00 | NUR ---
NURSE NOTES: Received patient ambulating to bathroom, witnessed to have steady gait. Right AC IV access patent, running IVF maintenance. Right forearm IV infiltrated per patient, discontinued, catheter intact, patient tolerated well. Bed low and locked, patient wearing fresh non slip socks.
[2020-11-12] VITALS: BP 122/76
--- NOTE | 2020-11-12 02:14 | History and Physical Report ---
DATE OF ADMISSION: 11/07/2020 Due to COVID-19 pandemic situation, this was a tele-health evaluation on the patient. I have already seen him twice in the hospital. There is no fever, no chills. The patient has been seen and evaluated by the pain management. She has not had too much physical therapy. She has difficulty transferring. She has difficulty walking to the bathroom. She is status post spinal stimulator placement. She has no nausea or vomiting. She has antibiotic prophylaxis . Physical therapy has been . ordered. continue pulse ox maneuver. by his pain medications. ____ service is seeing the patient. DVT prophylaxis with compression stockings. . to reduce the pain medication and discharge plan. Billy Lino M.D. DR: HENOK JOB#: [id number] CC:
[2020-11-12] MEDS: HYDROcodone/Acetamin 10/325 tab ORAL SCH ×4 (04:45→18:34)
[2020-11-12] MEDS: D5 1/2NS w/KCl 20mEq 1,000 ML IV SCH ×2 (04:45→17:24)
--- NOTE | 2020-11-12 07:38 | NUR ---
NURSE NOTES: Report given to KAYLEEN Larry
--- NOTE | 2020-11-12 07:56 | NUR ---
NURSE NOTES: Received patient is in bed, with complaint of back pain. Nurse discussed with patient pain medication schedule and told her she'll give it next due. RAC IV access G20, receiving IVF. Bed locked at the lowest position possible, call light within easy reach, side rails up x2. Fall precautions in place. Nurse will monitor constantly patient and follow up with the plan of care.
[2020-11-12 08:00] VITALS: BP 129/66
[2020-11-12] MEDS: Docusate 100mg cap ORAL SCH ×2 (08:17→17:25)
--- NOTE | 2020-11-12 08:34 | General Progress Note ---
Subjective Date patient seen: Nov 12, 2020 Time patient seen: 07:00 - am Allergies: Coded Allergies: No Known Allergies (Unverified , 09/07/18) Subjective HISTORY OF PRESENT ILLNESS: Patient is a 25-year-old female who is being seen on med/surgical floor of [facility]. The pain has been severe, tolerated on the Dilaudid and [place]. REVIEW OF SYSTEMS: Denies rash, fever, chills, sweating, dizziness, drowsiness, blurred vision, sore throat, or change in weight. No shortness of breath, chest pain, or palpitations. No nausea, vomiting, diarrhea, or blood in stool or urine. No dysuria. Objective Last 24 Hour Vital Signs Date Time Temp Pulse Resp B/P (MAP) Pulse Ox O2 Delivery O2 Flow Rate FiO2 11/12/20 07:38 98.1 11/12/20 06:17 98.1 11/12/20 02:26 98.1 11/12/20 00:00 98.1 70 18 122/76 (91) 96 11/11/20 23:18 97.7 11/11/20 22:26 Room Air 11/11/20 21:43 97.7 11/11/20 20:00 97.7 71 18 121/77 (92) 96 11/11/20 19:00 97.7 11/11/20 16:15 97.7 11/11/20 16:00 97.5 80 18 120/64 (82) 96 11/11/20 14:54 97.7 11/11/20 11:58 97.7 82 19 114/57 (76) 95 11/11/20 11:43 97.7 11/11/20 09:35 97.8 11/11/20 09:00 Room Air Intake and Output 11/11/20 11/12/20 19:00 07:00 Intake Total 360 ml Balance 360 ml Other 360 ml # Voids 2 3 # Bowel Movements 1 Height (Feet): 5 Height (Inches): 9.00 Weight (Pounds): 160 Objective PHYSICAL EXAMINATION: GENERAL: Alert, awake, and oriented. LUNGS: Decreased breath sounds bilaterally. HEART: S1 S2 Regular. ABDOMEN: Soft, nontender. EXTREMITIES: No clubbing. No edema. NEURO: No changes. Assessment/Plan Assessment/Plan: (1) Intractable back pain (2) S/p T10-T11 laminotomy and SCS placement Patient will be continued on [place], Dilaudid and Neurontin. D/w Dr. Zapata and he concurred. Félix Cunningham Nov 12, 2020 08:33
[2020-11-12 12:00] VITALS: BP 119/70
[2020-11-12 16:00] VITALS: BP 121/76
--- NOTE | 2020-11-12 19:30 | NUR ---
NURSE NOTES: Patient was ambulating in the room, alert and oriented x4. IV on the right AC 20 running D5 1/2NS +kCL20 @100cc/hr. Will medicate for pain as ordered. Instructed to use call light for assistance. Bed in lowest and lock engaged. Will continue to monitor.
--- NOTE | 2020-11-12 19:46 | NUR ---
NURSE HAND-OFF: Important Events on Shift:[] Patient Status: [] Diet: [regular] Pending Orders: [] Pending Results/Labs:[] Pending MD notification:[] Latest Vital Signs: Temperature 98.1 , Pulse 83 , B/P 121 /76 , Respiratory Rate 19 , O2 SAT 98 , Room Air, O2 Flow Rate . Vital Sign Comment: [] Latest Gilliam Fall Score: 35 Fall Risk: Medium Risk Safety Measures: Call light Within Reach, Bed Alarm Zone 2, Side Rails Side Rails x2, Bed position Low and Locked. Fall Precautions: Yellow Socks Yellow Gown Door Sign Patient Fall Education Report given to [KAYLEEN Goss].
[2020-11-12 20:00] VITALS: BP 107/67
[2020-11-13] VITALS: BP 113/78
[2020-11-13] MEDS: HYDROcodone/Acetamin 10/325 tab ORAL SCH ×6 (00:59→23:39)
[2020-11-13] MEDS: D5 1/2NS w/KCl 20mEq 1,000 ML IV SCH ×3 (01:00→20:37)
--- NOTE | 2020-11-13 01:30 | NUR ---
NURSE NOTES: RN flushed the IV line with saline and patient said she felt it and it was ok. After Dilaudid and Zofran IV were given IV line was flushed again with saline. Patient noticed there's fluid leaking from IV site. Patient didn't want RN to remove IV. Explained the risks and benefits but patient refused and insisted to keep for now. Charge nurse tried to insert a new IV access twice allowed by patient but were unsuccessful. Patient let RN tried once but was unsuccessful. Another RN tried and authorized also verbally by patient but just once and was unsuccessful. Sales Branch Manager made aware.
[2020-11-13 04:00] VITALS: BP 109/72
--- NOTE | 2020-11-13 05:00 | NUR ---
NURSE NOTES: CHarge nurse successfully inserted IV.
--- NOTE | 2020-11-13 07:30 | NUR ---
NURSE NOTES: RN received report from Alexa and patient in bed. Patient is aaoX4, c/o pain, denies respiratory distress. IV is infiltrated so will administer the medication as soon as a new IV access is present. Bed in lowest position, locked, SCD on. Call light within reach and patient able to make needs known. Will continue to monitor.
[2020-11-13 08:00] VITALS: BP 114/79
--- NOTE | 2020-11-13 08:00 | NUR ---
NURSE HAND-OFF: Important Events on Shift: IV insertion, pain mgt Patient Status: Diet: Pending Orders: Pending Results/Labs: Pending MD notification: Latest Vital Signs: Temperature 98.4 , Pulse 99 , B/P 109 /72 , Respiratory Rate 18 , O2 SAT 99 , Room Air, O2 Flow Rate . Vital Sign Comment: Latest Gilliam Fall Score: 35 Fall Risk: Medium Risk Safety Measures: Call light Within Reach, Bed Alarm Zone 2, Side Rails Side Rails x2, Bed position Low and Locked. Fall Precautions: Yellow Socks Yellow Gown Door Sign Patient Fall Education Report given to KAYLEEN Acosta.
--- NOTE | 2020-11-13 08:38 | General Progress Note ---
Subjective Date patient seen: Nov 13, 2020 Time patient seen: 07:15 - am Allergies: Coded Allergies: No Known Allergies (Unverified , 09/07/18) Subjective HISTORY OF PRESENT ILLNESS: Patient is a 25-year-old female who is being seen on med/surgical floor of [facility]. The patient reports pain has chris tolerated on the [place] 4 doses and 5 doses of Dilaudid in the last 24hrs. No new complaints at this time. REVIEW OF SYSTEMS: Denies rash, fever, chills, sweating, dizziness, drowsiness, blurred vision, sore throat, or change in weight. No shortness of breath, chest pain, or palpitations. No nausea, vomiting, diarrhea, or blood in stool or urine. No dysuria. Objective Last 24 Hour Vital Signs Date Time Temp Pulse Resp B/P (MAP) Pulse Ox O2 Delivery O2 Flow Rate FiO2 11/13/20 04:00 98.4 99 18 109/72 (84) 99 11/13/20 00:00 98.5 92 18 113/78 (90) 99 11/12/20 21:00 Room Air 11/12/20 20:00 98.2 107 18 107/67 (80) 96 11/12/20 17:54 98.1 11/12/20 16:00 98.1 83 19 121/76 (91) 98 11/12/20 13:20 97.4 11/12/20 12:04 97.4 11/12/20 12:00 97.4 82 19 119/70 (86) 97 11/12/20 09:00 Room Air 11/12/20 08:47 98.1 Intake and Output 11/12/20 11/13/20 19:00 07:00 Intake Total 600 ml Balance 600 ml Other 600 ml # Voids 2 Height (Feet): 5 Height (Inches): 9.00 Weight (Pounds): 160 Objective PHYSICAL EXAMINATION: GENERAL: Alert, awake, and oriented. LUNGS: Decreased breath sounds bilaterally. HEART: S1 S2 Regular. ABDOMEN: Soft, nontender. EXTREMITIES: No clubbing. No edema. NEURO: No changes. Assessment/Plan Assessment/Plan: (1) Intractable back pain (2) S/p T10-T11 laminotomy and SCS placement Patient will be continued on [place], Dilaudid and Neurontin. D/w Dr. Zapata and he concurred. Félix Cunningham Nov 13, 2020 08:38
[2020-11-13] MEDS: Docusate 100mg cap ORAL SCH ×2 (08:47→16:59)
--- NOTE | 2020-11-13 11:18 | NUR ---
RD ASSESSMENT & RECOMMENDATIONS SEE CARE ACTIVITY FOR COMPLETE ASSESSMENT DAILY ESTIMATED NEEDS: Needs based on general 72.5kg 25-30 kcals/kg 8373-5093 total kcals .8-1 g protein/kg 58-73 g total protein 25-30 mL/kg 8021-7198 total fluid mLs NUTRITION DIAGNOSIS: Altered nutrition related lab values r/t clinical status as evidenced by low Hgb (10.5), elev BG(120). CURRENT DIET: regular PO DIET RECOMMENDATIONS: Maintain regular diet as tolerated ADDITIONAL RECOMMENDATIONS: 1) Obtain a calibrated bed scale wt as able 2) rec HgA1C 3) Add snacks in b/w meals 4) Monitor for regular bm
[2020-11-13 12:00] VITALS: BP 128/76
--- NOTE | 2020-11-13 12:52 | NUR ---
NURSE NOTES: Patient refused scheduled pain medication [place] 10 despite benefits and risks explained X3.
--- NOTE | 2020-11-13 12:54 | NUR ---
NURSE NOTES: Patient is verbally abusive and demanding. Patient is uncooperative with nursing care. Patient states "it is none of your business what I talked to the doctor." Patient is constantly complaining and manipulative and calls CNO, hydro station supervisor and charge nurse. Patient demanded that her primary nurse be changed but the charge nurse explained to the patient that there are no one else available to take care of her. All the demands are met as much as possible. CNO [place], Charge nurse Otilia and hydro station supervisor Luke aware of the situation.
--- NOTE | 2020-11-13 15:00 | Diagnostic Imaging Report ---
EXAM: ULTRASOUND Venous Duplex Upper EXT UNI CLINICAL HISTORY: Arm swelling. COMPARISON: None TECHNIQUE: Doppler examination include grayscale images obtained with and without compression, and color and spectral doppler analysis. FINDINGS: Doppler examination shows normal spontaneity, phasicity, compressibility in the deep venous segments from the internal jugular vein to the subclavian, axillary, brachial and basilic veins. There is no thrombus identified by grayscale. Normal color and spectral flow is identified. However the cephalic vein is noted to be occluded from the antecubital fossa to the mid upper arm. IMPRESSION: STUDY POSITIVE FOR THROMBUS IN THE CEPHALIC VEIN FROM THE ANTECUBITAL FOSSA TO THE MID UPPER ARM
[2020-11-13 16:00] VITALS: BP 125/66
--- NOTE | 2020-11-13 17:52 | NUR ---
NURSE NOTES: RN notified Dr. Lino of VD result: "STUDY POSITIVE FOR THROMBUS IN THE CEPHALIC VEIN FROM THE ANTECUBITAL FOSSA TO THE MID UPPER ARM." No further orders at this time.
--- NOTE | 2020-11-13 19:30 | NUR ---
NURSE NOTES: Received patient ambulating in the room, with IV access on the left forearm g.22. Educated patient on her scheduled pain med vs PRN IV pain med. Pt verbalized understanding. Call light in reach. Bed in lowest and lock engaged. Will continue plan of care.
--- NOTE | 2020-11-13 19:47 | NUR ---
NURSE HAND-OFF: Important Events on Shift:pain management, patient being manipulative and demanding Patient Status: stable Diet: regular Pending Orders: n/a Pending Results/Labs:n/a Pending MD notification:n/a Latest Vital Signs: Temperature 97.0 , Pulse 93 , B/P 125 /66 , Respiratory Rate 18 , O2 SAT 98 , Room Air, O2 Flow Rate . Vital Sign Comment: stable Latest Gilliam Fall Score: 35 Fall Risk: Medium Risk Safety Measures: Call light Within Reach, Bed Alarm Zone 2, Side Rails Side Rails x2, Bed position Low and Locked. Fall Precautions: Yellow Socks Yellow Gown Door Sign Patient Fall Education Report given to
[2020-11-13 20:00] VITALS: BP 133/56
[2020-11-14] VITALS: BP 145/71
--- NOTE | 2020-11-14 02:00 | NUR ---
NURSE NOTES: Patient woke up and asking for her IV pain med which RN was already given (see emar). Patient insisting that she cannot remember that it was given. She asked why her IV pain med wasn't given every 2 hours as on emar. Discussed it with patient about PRN meds vs scheduled and she verbalized understanding. Will medicate for pain as ordered.
--- NOTE | 2020-11-14 02:11 | NUR ---
NURSE NOTES: Received patient alert and oriented x4, crying in severe pain. IV access on bilateral arms. With [place] catheter intact and draining well. With rectal tube in place connected to drainage bag with light brown output, but leaking. Charge nurse also aware. Assisted patient on hygiene. Per patient, [place] [address] [place] a year now. Call light in reach. Bed in lowest, lock engaged and alarm on. Called Dr. Parnell twice for admission orders and left message to exchange. Addendum: 11/14/20 at 0212 by SONAL HERNÁNDEZ RN oralia
[2020-11-14 04:00] VITALS: BP 120/66
[2020-11-14] MEDS: HYDROcodone/Acetamin 10/325 tab ORAL SCH ×3 (06:25→19:00)
[2020-11-14] MEDS: D5 1/2NS w/KCl 20mEq 1,000 ML IV SCH ×2 (06:27→16:51)
--- NOTE | 2020-11-14 07:37 | NUR ---
NURSE HAND-OFF: Important Events on Shift: pain mgt Patient Status: Diet: Pending Orders: Pending Results/Labs: Pending MD notification: Latest Vital Signs: Temperature 97.2 , Pulse 75 , B/P 120 /66 , Respiratory Rate 18 , O2 SAT 97 , Room Air, O2 Flow Rate . Vital Sign Comment: Latest Gilliam Fall Score: 35 Fall Risk: Medium Risk Safety Measures: Call light Within Reach, Bed Alarm Zone 2, Side Rails Side Rails x2, Bed position Low and Locked. Fall Precautions: Yellow Socks Yellow Gown Door Sign Patient Fall Education Report given to KAYLEEN Moe.
--- NOTE | 2020-11-14 08:37 | General Progress Note ---
Subjective Date patient seen: Nov 14, 2020 Time patient seen: 07:30 - am Allergies: Coded Allergies: No Known Allergies (Unverified , 09/07/18) Subjective HISTORY OF PRESENT ILLNESS: Patient is a 25-year-old female who is being seen on med/surgical floor of [facility]. The patient reports pain has chris tolerated on the [place] 3 doses and 6 doses of Dilaudid in the last 24hrs. No new complaints at this time. REVIEW OF SYSTEMS: Denies rash, fever, chills, sweating, dizziness, drowsiness, blurred vision, sore throat, or change in weight. No shortness of breath, chest pain, or palpitations. No nausea, vomiting, diarrhea, or blood in stool or urine. No dysuria. Objective Last 24 Hour Vital Signs Date Time Temp Pulse Resp B/P (MAP) Pulse Ox O2 Delivery O2 Flow Rate FiO2 11/14/20 04:00 97.2 75 18 120/66 (84) 97 11/14/20 00:00 98.0 78 18 145/71 (95) 98 11/13/20 21:00 Room Air 11/13/20 20:00 97.8 74 18 133/56 (81) 97 11/13/20 17:28 97.0 11/13/20 16:00 97.7 93 18 125/66 (85) 98 11/13/20 14:18 97.0 11/13/20 12:00 97.0 99 18 128/76 (93) 95 11/13/20 10:46 98.4 11/13/20 09:00 Room Air Intake and Output 11/13/20 11/14/20 19:00 07:00 Intake Total 600 ml 500 ml Balance 600 ml 500 ml Other 600 ml 500 ml # Voids 4 Height (Feet): 5 Height (Inches): 9.00 Weight (Pounds): 160 Objective PHYSICAL EXAMINATION: GENERAL: Alert, awake, and oriented. LUNGS: Decreased breath sounds bilaterally. HEART: S1 S2 Regular. ABDOMEN: Soft, nontender. EXTREMITIES: No clubbing. No edema. NEURO: No changes. Assessment/Plan Assessment/Plan: (1) Intractable back pain (2) S/p T10-T11 laminotomy and SCS placement Patient will be continued on [place], Dilaudid and Neurontin. D/w Dr. Zapata and he concurred. Félix Cunningham Nov 14, 2020 08:37
[2020-11-14 09:00] VITALS: BP 124/67
[2020-11-14] MEDS: Docusate 100mg cap ORAL SCH ×2 (09:28→16:53)
[2020-11-14 12:00] VITALS: BP 116/72
--- NOTE | 2020-11-14 13:10 | NUR ---
NURSE NOTES: while doing pain reassessment charted that another hydromorphone was given. This was done in error. Not given. [place] given and charted.
--- NOTE | 2020-11-14 14:32 | NUR ---
P.T Note: Observed pt demonstrating full independence in transfer activities and has been ambulating within hallways with IV pole independently and safely. Skilled P.T services no longer needed at this time. Will re assess if needed or if there's a significant decline in her functional mobilities otherwise is D/C's from P.T services. Case discussed with KAYLEEN.
[2020-11-14 16:39] VITALS: BP 117/65
[2020-11-14 20:00] VITALS: BP 140/68
--- NOTE | 2020-11-14 20:00 | NUR ---
NURSE NOTES: Patient in bed, awake, alert x 4. Able to make needs known. Respiration is even and unlabored. Complained of pain, will give PRn pain medication as ordered. Skin is warm and dry to touch. Noted with posterior dressing, so noted, dry. Iv site noted, iv fluid is infusing as ordered. Bed in low and locked position. Provide safe environment. Call light is at bedside. Will continue plan of care.
[2020-11-14] MEDS: Eliquis 2.5mg tablet ORAL SCH (23:26)
[2020-11-14] MEDS: ceFAZolin sod 1 GM in D5W 55 ML IVPB SCH (23:49)
[2020-11-15] VITALS: BP 133/57
--- NOTE | 2020-11-15 | NUR ---
NURSE NOTES: Dr. Lino came to see patient, new orders given, noted and carried out.
[2020-11-15] MEDS: HYDROcodone/Acetamin 10/325 tab ORAL SCH ×4 (00:30→19:00)
[2020-11-15] MEDS: D5 1/2NS w/KCl 20mEq 1,000 ML IV SCH ×3 (01:00→13:52)
[2020-11-15 04:00] VITALS: BP 116/67
[2020-11-15] MEDS: ceFAZolin sod 1 GM in D5W 55 ML IVPB SCH ×2 (06:34→13:53)
--- NOTE | 2020-11-15 07:04 | NUR ---
NURSE HAND-OFF: Important Events on Shift:Changed frequency for pain med Patient Status: WNL Diet: REG Pending Orders: Pending Results/Labs: Pending MD notification: Latest Vital Signs: Temperature 97.3 , Pulse 74 , B/P 116 /67 , Respiratory Rate 17 , O2 SAT 98 , Room Air, O2 Flow Rate . Vital Sign Comment: WNL Latest Gilliam Fall Score: 35 Fall Risk: Medium Risk Safety Measures: Call light Within Reach, Bed Alarm Zone 2, Side Rails Side Rails x2, Bed position Low and Locked. Fall Precautions: Yellow Socks Yellow Gown Door Sign Patient Fall Education Report given to KAYLEEN Garrido.
--- NOTE | 2020-11-15 07:52 | NUR ---
NURSE NOTES: Received report from Erza Zapata RN. Patient in restroom, on room air, c/o pain, will follow-up with pain medication. Patient is asking if she is going home today. I told her I will notify her should I hear if she is being discharged.
[2020-11-15 08:00] VITALS: BP 125/67
[2020-11-15] MEDS: Eliquis 2.5mg tablet ORAL SCH ×2 (08:35→17:25)
[2020-11-15] MEDS: Docusate 100mg cap ORAL SCH ×2 (08:35→17:25)
[2020-11-15] MEDS ORDERED: Cephalexin 500mg cap ORAL SCH (09:00)
--- NOTE | 2020-11-15 09:14 | General Progress Note ---
Subjective Date patient seen: Nov 15, 2020 Time patient seen: 07:30 - am Allergies: Coded Allergies: No Known Allergies (Unverified , 09/07/18) Subjective HISTORY OF PRESENT ILLNESS: Patient is a 25-year-old female who is being seen on med/surgical floor of [facility]. The patient reports pain has chris tolerated on the [place] 4 doses and 2 doses of Dilaudid in the last 24hrs. No new complaints at this time. REVIEW OF SYSTEMS: Denies rash, fever, chills, sweating, dizziness, drowsiness, blurred vision, sore throat, or change in weight. No shortness of breath, chest pain, or palpitations. No nausea, vomiting, diarrhea, or blood in stool or urine. No dysuria. Objective Last 24 Hour Vital Signs Date Time Temp Pulse Resp B/P (MAP) Pulse Ox O2 Delivery O2 Flow Rate FiO2 11/15/20 04:00 97.3 74 17 116/67 (83) 98 11/15/20 00:00 97.7 79 18 133/57 (82) 99 11/14/20 21:00 Room Air 11/14/20 20:00 97.7 73 17 140/68 (92) 100 11/14/20 16:39 97.8 69 18 117/65 (82) 100 11/14/20 12:00 97.5 66 18 116/72 (87) 100 Intake and Output 11/14/20 11/15/20 19:00 07:00 Intake Total 500 ml 860 ml Balance 500 ml 860 ml IV Total 500 ml Other 500 ml 360 ml # Voids 3 Height (Feet): 5 Height (Inches): 9.00 Weight (Pounds): 160 Objective PHYSICAL EXAMINATION: GENERAL: Alert, awake, and oriented. LUNGS: Decreased breath sounds bilaterally. HEART: S1 S2 Regular. ABDOMEN: Soft, nontender. EXTREMITIES: No clubbing. No edema. NEURO: No changes. Assessment/Plan Assessment/Plan: (1) Intractable back pain (2) S/p T10-T11 laminotomy and SCS placement Patient will be continued on [place], Dilaudid and Neurontin. Rx for [place] 10/325mg 42 tabs, Neurontin and Narcan nasal spray was sent to patients pharmacy of choice. D/w Dr. Zapata and he concurred. Félix Cunningham Nov 15, 2020 09:14
--- NOTE | 2020-11-15 09:29 | History and Physical Report ---
DATE OF ADMISSION: 11/07/2020 Currently, she is in room 414, [facility]. The patient has been having the patient was noted to have a thrombus in the cephalic vein and the antecubital fossa in the mid upper arm. She denies fever, chills, nausea, vomiting, or diarrhea. She has slight tenderness in the right antecubital fossa. She is status post stress stimulator placement. I went into the room with a nurse, we had her walk with us and have had her walk close to 100 feet. The following will be done for her. She is not in acute distress. 1. Status post placement. 2. Status post having preoperative antibiotic prophylaxis. 3. Pain control. She is taking just pain medications since the admission. Case was discussed with the Pain Management who will come up with the pain medication. She will be started on Ancef 1 g every 8 hours for 48 hours. I will switch her tomorrow morning to Keflex 500 every 6 for seven days. 4. She will get Eliquis 5 mg twice a day for the blood clot she has. She will see me in the office on Thursday. She will have repeat ultrasound done and we will discuss how to manage her of the right upper extremity. Eliquis 5 mg twice a day will be started. First dose will be given tonight. This patient is agreeable to both. Billy Lino M.D. DR: /PHIL JOB#: [id number] CC:
[2020-11-15 12:00] VITALS: BP 135/71
--- NOTE | 2020-11-15 15:20 | NUR ---
Shop Worker: Left message on voicemail of Dr. Bryce Zapata notifying patient request of more pain medication.
--- NOTE | 2020-11-15 15:51 | NUR ---
NURSE NOTES: I spoke with Dr. Billy Lino informing him that the patient is asking for more pain medication. Dr. Lino indicated that he will defer to pain doctor.
[2020-11-15 16:00] VITALS: BP 144/64
[2020-11-15] MEDS ORDERED: HYDROmorphone 2mg tab ORAL PRN (19:00)
--- NOTE | 2020-11-15 19:30 | NUR ---
Received patient in bed, awake, alert, oriented x4, ambulates with steady gate, no IV access at this time, patient refused scheduled dose of [place], stated she wants Dilaudid PO, Dr Lino at bedside, talking to the patient, possible d/c tomorrow 11/16/2020, patient agrees to restart an IV, states that PO Dilaudid is not effective. IV access established. Per Dr Lino, continue with scheduled [place] and discontinue PO Dilaudid, restart Dilaudid IV 2 mg q 4 hours PRN. CN was made aware.
[2020-11-15 20:00] VITALS: BP 138/74
--- NOTE | 2020-11-15 20:05 | NUR ---
NURSE HAND-OFF: Important Events on Shift: Patient appears to be drug seeking, pulls out IV lines, multiple requests for more pain medication, Dr. Naila Cunningham pain doctor. D/C'd IV Ancef and IV Dilaudid. Keflex and po Dilaudid ordered. Dr. Billy Lino will be in this evening to see the patient. Patient Status: In no apparent distress. Diet: Regular Diet. Pending Orders: N/A Pending Results/Labs: Pending MD notification: Latest Vital Signs: Temperature 97.3 , Pulse 71 , B/P 144 /64 , Respiratory Rate 16 , O2 SAT 99 , Room Air, O2 Flow Rate . Vital Sign Comment: N/A Latest Gilliam Fall Score: 35 Fall Risk: Medium Risk Safety Measures: Call light Within Reach, Bed Alarm Zone 2, Side Rails Side Rails x2, Bed position Low and Locked. Fall Precautions: Yellow Socks Yellow Gown Door Sign Patient Fall Education Report given to Sunshine Prajapati RN.
[2020-11-15] MEDS: Cephalexin 500mg cap ORAL SCH (20:31)
--- NOTE | 2020-11-15 22:58 | NUR ---
Per , Dr Lino, give patient a dose of Dilaudid 2mg IV now, and then continue as ordered, place patient on continuous pulse ox.
[2020-11-16] VITALS: BP 123/65
[2020-11-16] MEDS: HYDROcodone/Acetamin 10/325 tab ORAL SCH ×2 (01:06→06:45)
--- NOTE | 2020-11-16 03:59 | History and Physical Report ---
DATE OF ADMISSION: 11/07/2020 HISTORY OF PRESENT ILLNESS: The patient was admitted to the hospital with postoperative pain. She underwent a spinal surgery. She denies any fever, chills, nausea, vomiting, or diarrhea. She had a spinal stimulator placement. Postoperatively, she has been having a lot of pain. I made a few phone calls and talked the case with a surgeon. Surgeon is not on the staff here. She denies nausea, vomiting. Last night, she was on Dilaudid and Dilaudid was reduced and she was unable to sleep and her pain has gone up. She has a cephalic vein thrombosis in the right antecubital. PHYSICAL EXAMINATION: VITAL SIGNS: Stable. HEENT: Normocephalic and atraumatic. The patient right antecubital fossa. The following will be done with the patient. Status post spinal stimulator placement. Lumbar spine pain, status post cervical fusion. Pain control. Monitor the patient closely. DC planning on Eliquis twice a day and Keflex. She will need to get an ultrasound of the arm done again. Case was discussed with the patient at length. Discharge morning. Billy Lino M.D. : RAQUEL JOB#: [id number] CC:
[2020-11-16 04:00] VITALS: BP 113/59
--- NOTE | 2020-11-16 06:48 | NUR ---
per [facility] ok to administer Dilaudid 2 mg IV prn next scheduled dose and ok to administer [place] at 0645 am. CN was made aware.
--- NOTE | 2020-11-16 07:11 | NUR ---
NURSE HAND-OFF: Important Events on Shift:pain managment, endorsed to am nurse about administration of Dilaudid 2 mg IV prn at 0723 am. Patient Status:full code Diet:regular Pending Orders: Pending Results/Labs: Pending MD notification: Latest Vital Signs: Temperature 97.8 , Pulse 70 , B/P 113 /59 , Respiratory Rate 18 , O2 SAT 96 , Room Air, O2 Flow Rate . Vital Sign Comment: Latest Gilliam Fall Score: 35 Fall Risk: Medium Risk Safety Measures: Call light Within Reach, Bed Alarm Zone 2, Side Rails Side Rails x2, Bed position Low and Locked. Fall Precautions: Yellow Socks Yellow Gown Door Sign Patient Fall Education Report given to Tomer BEYER
[2020-11-16 08:00] VITALS: BP 119/70
--- NOTE | 2020-11-16 08:04 | NUR ---
NURSE NOTES: Patient seen in bed sitting at edge on her own phone. Patient under no acute signs of distress on room air with oxygen saturation within normal limits. Patient complained of pain 8/10 and Dilaudid was given per MD orders. The patient has a L hand 24G that is clean, patent intact and saline locked. The patients bed is in lowest position, locked, side rails x2 and call light within reach. Patient instructed to press call light for further needs.
[2020-11-16] MEDS: Cephalexin 500mg cap ORAL SCH (08:45)
[2020-11-16] MEDS: Eliquis 2.5mg tablet ORAL SCH (08:45)
[2020-11-16] MEDS: Docusate 100mg cap ORAL SCH (08:45)
--- NOTE | 2020-11-16 10:15 | NUR ---
NURSE NOTES: Patient discharged home in private vehicle with patients friend. Patient is in stable condition, AAOx4. Patients belongings list was verified and acknowledged and signed. Patient instructions given and education given on home care, medications,diagnosis and signs and symptoms.All questions answered at this time. Patients IV was removed and was clean and intact. Patient was accompanied by RN to private vehicle. Patient was off the unit at 1015.
[2020-11-17] MEDS ORDERED: Cephalexin 500mg cap ORAL SCH (09:00)
--- NOTE | 2020-11-17 12:11 | Discharge Summary ---
Discharge Summary Discharge Summary _ Date of admission: 11/07/2020 Date of discharge: 11/16/[address] Lino History of Present Illness and Brief Hospital Course Ms. Vital is a 25-year-old female who presented to the ED for postoperative pain. Patient was sent by her primary care doctor (Dr Lino) for postoperative pain status post lumbar spinal stimulator and thoracic spinal surgery performed by . Patient was neurologically intact and afebrile. Surgical incision sites were clean, dry, and intact. There was no active bleeding or purulent drainage. Patient was admitted to the hospital for further management. Patient complained of intractable back pain. Patient's pain medications were adjusted accordingly. Patient's presentation was also suspicious for right upper extremity DVT. The venous duplex ultrasound of upper extremities was positive for thrombus in the cephalic vein from the antecubital fossa to the mid upper arm. Patient was started on Eliquis. Patient was medically stable for discharge and was discharged on 11/16/2020 on medical therapy. Consultants: Pain management NAOMI Grider Discharge Condition Improved and stable Final diagnoses Right upper extremity DVT Lumbar spine pain, s/p S/p T10-T11 laminotomy and spinal stimulator placement I have been assigned to dictate discharge summary for this account. I was not involved in the patient's management Chaim Rodríguez Nov 17, 2020 12:11
== END 2020-11-16 10:15 | disposition home or self-care (01) | DRG 948 ==
LOC: EMR 22:10 → 4E 22:33 → EDBEDREQ 23:01 → 4E 11-08 01:47
DX: G89.18 Other acute postprocedural pain (principal); I82.621 Acute embolism and thrombosis of deep veins of right upper extremity; Z96.82 Presence of neurostimulator; V43.62XS Car passenger injured in collision with other type car in traffic accident, sequela
CPT/HCPCS: 36415; 72128; 72131; 80053; 84702; 85007; 85025; 85651; 86140; 93971; 96374; 96375; 96376; 99285; J2405